=== PATIENT | female | born 1955 ===

== ENCOUNTER 2020-12-25 18:44 | Inpatient (IN) | payer MEDICARE, MEDICAID, SELFPAY ==
[2020-12-25] VITALS (34 sets, daily range): BP systolic 109–171; BP diastolic 60–108; PULSE 82–108; RESP 10–35; TEMP 36.7; O2SAT 82–97
--- NOTE | 2020-12-25 19:15 | DI.RAD_ITS ---
Exam(s) XR PORTABLE CHEST AP EXAM: XR PORTABLE CHEST AP CLINICAL HISTORY: sob, chf, copd. TECHNIQUE: 2D digital imaging was performed. COMPARISON: CT CT CHEST PE CTA from 12/25/[address] CHEST PE CTA from 12/25/2020 FINDINGS: Heart size is upper normal. The mediastinum is not widened. Left lung is clear. Subtle density in the posterior basal segment right lower lobe behind the right heart shadow noted. This possibly nodule. No pleural effusions. No pulmonary edema. No pneumothor ax IMPRESSION: Possible nodular density right lower lobe posterior basal segment. No pleural effusions. DATA REPOSITORY: RADIATION DOSE DELIVERED: All CT scans at this facility use at least one of these dose optimization techniques: automated exposure control; mA and/or kV adjustment per patient size (includes targeted e xams where dose is matched to clinical indication); or iterative reconstruction.
--- NOTE | 2020-12-25 19:15 | RT.EKG_ITS ---
APPROVED REPORT Exam: Resting ECG Reason for Exam: sob Patient Location: E HR:95 bpm ECG Measurements Heart Rate 95 AXIS NE 219 P 63 QRSd 89 QRS 1 QT 347 T 27 QTc 438 Conclusion Sinus rhythm...normal P axis, V-rate 60- 99 Prolonged NE interval...NE >215, V-rate 91-120 Physician: Rate 95, sinus rhythm, NE slightly prolonged. No significant ST elevations or depressions . No evidence of STEMI.
--- NOTE | 2020-12-25 19:34 | W.ED.GENAD ---
Discharge Plan Disposition Patient Disposition: [facility] INPATIENT Condition: Stable Discharge Details Clinical Impression: COPD exacerbation, CHF (congestive heart failure), Acute UTI, Pneumonia, Acute dyspnea, Pulmonary nodule Primary Care Provider: Ekaterina Delong ED Provider: Michele Rizzo Home Meds and New Rx's Prescriptions: No Action cetirizine 10 mg Tablet 10 mg PO DAILY RF: 0 ibuprofen 200 mg Tablet 400 mg PO Q6H PRNRF: 0 Medical Decision Making 65-year-old female with a past medical history of COPD who does not see a primary care provider presents today for evaluation of shortness of breath, leg swelling, and redness on her left leg. Patient states that for the past few weeks she has had swelling in her lower extremities but it is worsened as of late, she has become short of breath with exertion, but has had some difficulty speaking because of her shortness of breath. She admits to also a small lesion on her leg that has been present for years however with the scientology of the swelling in her legs it is constant drainage and now some redness. She denies fever or chills. She does admit to chronic unchanged cough. She denies recent long trips surgeries or procedures. She denies history of blood clots. She denies history of heart attack. She denies any chest pain or exertional chest pain or chest tightness. She does continue to smoke regularly. She does not take any medications at this time. She is not on home oxygen. Physical exam demonstrates crackles in her lung bases, wheezes throughout, lower extremities demonstrate +3 pitting edema, as well as a small circular lesion on her left anterior tucker with a area of redness surrounding it concerning for cellulitis. Differential at this time is highest for COPD exacerbation in conjunction with congestive heart failure. We will diurese, give breathing treatment, get a chest x-ray, get blood cultures, treat with antibiotic for the cellulitis, monitor closely and reassess. Patient has been placed on 2 L of oxygen this is brought her oxygenation up from 88% to 93%. 10 PM Laboratory work-up is returned, patient has no elevation in her white count, oxygenation is improved with supplemental O2. VBG shows a pH of 7.28, PCO2 is elevated at 77 suggesting an acute on chronic component. Lactate normal, initial troponin normal, electrolytes stable. proBNP elevated at 1900, urinalysis is positive for nitrates, leukoesterase, and high WBCs. Covid test is negative. Chest x-ray was read as negative, however CT scan was ordered and shows evidence of pulmonary nodules, multifocal regions and tree but opacities of the lung suggesting infection. Patient I feel at this point has multiple components to her illness. She demonstrates evidence of mild pneumonia, urinary tract infection, congestive heart failure with her notable peripheral edema and elevated proBNP, so has a COPD exacerbation with her wheezes and rhonchi. Patient has been given 3 DuoNeb's, steroids, 2 g of ceftriaxone, and 100 mg of doxycycline for coverage and management of this. She is also been given 20 mg of Lasix and his speed a liter of fluids. We did place her on BiPAP temporarily to help drive down the PCO2, but she remained stable on supplemental nasal cannula. Discussed the case with Dr. Porter, he agrees with the assessment and plan. Patient will be admitted. Of note patient has not yet had the Covid vaccination she is willing to get this now. I have extensively reviewed the treatment plan with the patient. I have addressed all patient concerns at this time. I have also discussed the plan with the admitting physician and they agree with the current assessment and plan and have agreed to assume responsibility for the patient. All parties demonstrate verbal understanding and agreement with our assessment and plan at this time. The documentation in this chart was dictated using [employer] dictation software. Please excuse any dictation errors. EKG 20: 19 Rate 95, sinus rhythm, NE slightly prolonged. No significant ST elevations or depressions. No evidence of STEMI. FINDINGS: Lungs: The lungs are clear. There is no pulmonary vascular congestion. Pleural spaces: There are no pleural effusions present. There is no evidence of pneumothorax. Heart/Mediastinum: There are bilateral pericardial fat pads. Heart size is likely near the upper limits of normal. Bones/joints: Findings suggest mild to moderate lower thoracic levoscoliosis. Other findings: The patient is rotated to the right. IMPRESSION: No active cardiopulmonary disease identified. Thank you for allowing us to participate in the care of your patient. Dictated and Authenticated by: Ed Cash MD 12/25/2020 8:27 PM Eastern Time ([place] & [place]) FINDINGS: Pulmonary arteries: No filling defects within the pulmonary arteries are identified to suggest pulmonary embolism. There is mild dilatation of the central pulmonary arteries suggesting history of pulmonary hypertension. Aorta: Unremarkable. No aortic aneurysm. No aortic dissection. Lungs: There is a 1.0 x 0.9 cm right lower lobe nodule on image 316, series 5. There are smaller subpleural nodules within the lateral aspect of the left lower lobe on image 365 and within the posterior aspect of the right lower lobe on image 401. There are multifocal regions of tree-in-bud opacity, most prominent within the right lower lobe and right middle lobe, suggesting infectious small airways disease. There are regions of atelectasis within the right middle lobe as well. There is mild patchy airspace opacity within the lingula measuring up to 1.7 x 1.2 cm, some of which represents atelectasis but cannot exclude pneumonia in this region. Pleural spaces: There are no pleural effusions present. Heart: There is mild cardiomegaly. There is no pericardial effusion. Lymph nodes: There is no evidence of lymphadenopathy. Gallbladder and bile ducts: There are multiple radiolucent gallstones. Adrenal glands: There is diffuse bilateral nonspecific mild adrenal enlargement, suggesting hyperplasia. Bones/joints: There is multifocal moderate spondylosis throughout the mid and lower thoracic spine. There is a mild anterior wedge compression deformity the T8 vertebra, which appears chronic. Soft tissues: Unremarkable. IMPRESSION: 1. No acute pulmonary embolism identified. 2. Multifocal regions of tree-in-bud opacities within the lungs suggesting infectious small airways disease. 3. A few more isolated pulmonary nodules, as described above, the largest measuring 1.0 x 0.9 cm. Cannot exclude pulmonary neoplasm on this exam. For patients at low risk (minimal or absent history of smoking and of other known risk factors), recommend CT Chest at 3-6 months, then consider CT Chest at 18-24 months. For patients at high risk (history of smoking or of other known risk factors), recommend CT Chest at 3-6 months, then CT Chest at 18-24 months. (Reference: Syed) 4. Mild patchy airspace opacity within the lingular segment of the left upper lobe, some of which represents atelectasis but cannot exclude mild pneumonia in this region. 5. Mild cardiomegaly. 6. Multiple radiolucent gallstones. REFERENCES: Syed Mccurdy, et al. Guidelines for Management of Incidental Pulmonary Nodules Detected on CT Images: From the Fleischner Society 2017. Radiology. 2017;284(1):228-243. Thank you for allowing us to participate in the care of your patient. Dictated and Authenticated by: Ed Cash MD 12/25/2020 9:48 PM Eastern Time ([place] & [place]) HPI General Date/Time Provider Initiated Documentation: 12/25/20 19:00. HPI Narrative: 65-year-old female with a past medical history of COPD who does not see a primary care provider presents today for evaluation of shortness of breath, leg swelling, and redness on her left leg. Patient states that for the past few weeks she has had swelling in her lower extremities but it is worsened as of late, she has become short of breath with exertion, but has had some difficulty speaking because of her shortness of breath. She admits to also a small lesion on her leg that has been present for years however with the scientology of the swelling in her legs it is constant drainage and now some redness. She denies fever or chills. She does admit to chronic unchanged cough. She denies recent long trips surgeries or procedures. She denies history of blood clots. She denies history of heart attack. She denies any chest pain or exertional chest pain or chest tightness. She does continue to smoke regularly. She does not take any medications at this time. She is not on home oxygen. Related Data Home Medications Medication Instructions Recorded Confirmed cetirizine 10 mg PO DAILY 12/25/20 12/25/20 ibuprofen 400 mg PO Q6H PRN 12/25/20 12/25/20 Allergies Allergy/AdvReac Type Severity Reaction Status Date / Time No Known Allergies Allergy Unverified 12/25/20 18:55 General Stated Complaint: Cellulitis SUMAYA: 3 Review of Systems All systems reviewed & are unremarkable except as noted in HPI and below PFSH Social History Smoking/Tobacco Use Status: Current every day Tobacco Type: cigarettes Smoking risk assessment performed?: Yes Alcohol Intake: current Alcohol Intake frequency: holidays/special occasions only Drug use: Never Substance use type: does not use Do you feel safe at home: Yes Do you feel safe in your relationship?: Yes Exam Narrative Exam Narrative: 1.Const: Well-nourished, Well-developed, appearing stated age 2.Eyes: PERRL, no conjunctival injection, and symmetrical lids. 3.ENT: Atraumatic external nose and ears. Moist MM. Neck: Symmetric, trachea midline, No thyromegaly. 4.CVS: +S1/S2, No murmurs or gallops. Peripheral pulses 2+ and equal in all extremities. Brisk capillary refill in all extremities. 5.RESP: Slightly labored respiratory effort, 4-5 word sentences. Wheezes throughout, mild crackles in the bases. No rhonchi. 6.GI: Soft, Nontender/Nondistended, No hepatosplenomegaly. No guarding or rebound. 7.MSK: Normocephalic/Atraumatic, patient demonstrates +3 pitting edema bilaterally, no focal calf tenderness. On her left lower tucker she has a circular lesion appears to be chronic however it is oozing a small amount of serous fluid, no significant purulence though. There is a circular area of redness with an irregular border extending around it, roughly 4 to 5 cm in diameter. 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 Sensation grossly intact, no focal neurologic deficits. 10.Psych: (AAO) x3. Appropriate mood and affect Course Vital Signs Vital signs: Vital Signs Temperature 36.7 C 12/25/20 18:50 Pulse 108 H 12/25/20 18:50 Respiratory Rate 22 12/25/20 18:50 Blood Pressure 171/88 H 12/25/20 18:50 Pulse Oximetry 82 L 12/25/20 18:50 Temperature 36.7 C 12/25/20 18:50 Pulse 108 H 12/25/20 18:50 Respiratory Rate 22 12/25/20 18:50 Respiratory Effort 12/25/20 18:56 Blood Pressure 171/88 H 12/25/20 18:50 Blood Pressure Position Sitting 12/25/20 18:50 Pulse Oximetry 82 L 12/25/20 18:50 Oxygen Delivery Method Room Air 12/25/20 18:50 Oxygen Flow Rate 0 12/25/20 18:50 Lab/Test Results Lab/Test Results: 12/25/20 19:24 Blood Blood Culture - Pending 12/25/20 19:24 Blood Blood Culture - Pending
[2020-12-25 19:40] LABS: Lactate 0.8 mmol/L (0.6-1.4)
[2020-12-25 19:48] LABS: Abs Immature Grans 0.06 10^3/uL (0.0-0.06); Absolute Basophil Count 0.07 10^3/uL (0.0-0.2); Absolute Eosinophil Count 0.06 10^3/uL (0.0-0.7); Absolute Lymphocyte Count 2.23 10^3/uL (1.2-3.4); Absolute Monocyte Count 0.66 10^3/uL (0.1-0.8); Absolute Neutrophil Count 6.09 10^3/uL (1.2-6.7); Basophils % 0.8; Eosinophils % 0.7; HGB 16.9 g/dL (11.2-15.7); Immature Grans % 0.7; Lymphocytes % 24.3; MCH 27.8 pg (27.0-33.0); MCHC 30.8 % (32.0-36.0); Monocytes % 7.2; Neutrophils % 66.3; Nucleated RBC 0 %; Platelet Count 129 10^3/uL (130-400); RBC 6.09 10^6/uL (3.93-5.22); RDW 17.1 % (11.7-14.6); RDW-SD 52.7 fL; WBC 9.17 10^3/uL (4.4-10.8)
[2020-12-25] MEDS: Albuterol/Ipratropium 3 ML UPD VIAL 9 ML UPD (19:50)
[2020-12-25] MEDS: methylPREDNISolone SUCC 125 MG VIAL IVP (19:50)
[2020-12-25] MEDS: Furosemide 20 MG/2 ML VIAL IVP (19:50)
[2020-12-25 19:59] LABS: INR 1.1 (0.9-1.1); PTT Activated 24.7 sec (21.0-27.5); Prothrombin Time 10.7 sec (9.3-11.0)
[2020-12-25 20:01] LABS: HCT 54.8 % (36.0-46.0)
[2020-12-25 20:05] LABS: ALT 23 U/L (14-59); AST 21 U/L (15-37); Albumin 3.6 g/dL (3.4-5.0); Alkaline Phosphatase 110 U/L (46-116); Anion Gap 3.1 mmol/L (3-11); BUN 10 mg/dL (7-18); Bilirubin, Total 0.7 mg/dL (0.2-1.0); CO2 34.9 mmol/L (21.0-32.0); CREATININE 0.9 mg/dL (0.55-1.02); Calcium 8.6 mg/dL (8.5-10.1); Chloride 106 mmol/L (98-107); Glucose 129 mg/dL (74-106); Potassium 4.2 mmol/L (3.5-5.1); Sodium 144 mmol/L (136-145); Total Protein 7.7 g/dL (6.4-8.2)
[2020-12-25 20:14] LABS: NT-proBNP 1981 pg/mL (<300)
[2020-12-25] MEDS: cefTRIAXone 2 GM/50 ML BAG IVPB (20:14)
[2020-12-25 20:17] LABS: Troponin I < 0.05 ng/mL (<0.06)
[2020-12-25 20:24] LABS: D-Dimer 509 ng/mlFEU (<500)
--- NOTE | 2020-12-25 20:28 | DI.VRAD_ITS ---
PROCEDURE INFORMATION: Exam: XR Chest Exam date and time: 12/25/2020 7:26 PM Age: 65 years old Clinical indication: Shortness of breath; Patient HX: SOB, chf, copd TECHNIQUE: Imaging protocol: XR of the chest. Views: 1 view. COMPARISON: No relevant prior studies available. FINDINGS: Lungs: The lungs are clear. There is no pulmonary vascular congestion. Pleural spaces: There are no pleural effusions present. There is no evidence of pneumothorax. Heart/Mediastinum: There are bilateral pericardial fat pads. Heart size is likely near the upper limits of normal. Bones/joints: Findings suggest mild to moderate lower thoracic levoscoliosis. Other findings: The patient is rotated to the right. IMPRESSION: No active cardiopulmonary disease identified. Dictated and Authenticated by: Ed Cash MD. Ordering:ADRIAN Bautista MD
[2020-12-25 20:35] LABS: Procalcitonin < 0.1 ng/mL
[2020-12-25] MEDS: Normal Saline - Diluent 50 ML VIAL IV (20:39)
[2020-12-25] MEDS: Omnipaque 350 MG/ML 100 ML BTL 84 ML IJ (20:40)
[2020-12-25 20:44] LABS: BE (Venous) 10 mmol/L (-2-3); HCO3 (Venous) 36 mmol/L (23-28); O2 Sat (Venous) 94 %; TCO2 (Venous) 32 mmol/L (24-29); pH (Venous) 7.28 (7.31-7.41); pO2 (Venous) 73 mmHg
[2020-12-25 20:46] LABS: pCO2 (Venous) 77 mmHg (41-51)
[2020-12-25 21:09] LABS: Source Nasal/Nares
--- NOTE | 2020-12-25 21:11 | DI.CT_ITS ---
Exam(s) CT CHEST PE CTA EXAM: CT CHEST PE CTA CLINICAL HISTORY: sob, chf, copd, r/o pe. TECHNIQUE: Imaging Protocol: CT angiography of the chest was performed using pulmonary embolus nola col. Multi planar reconstructions were performed. CONTRAST MATERIAL: Intravenous: Omnipaque 350 Contrast volume: 100 cc COMPARISON: No exams were available for comparison FINDINGS: CHEST: PULMONARY ARTERIES: Less than optimal bolus timing. There are no obvious intraluminal filling defect s to suggest acute pulmonary emboli. LUNGS: There is a 10 x 9 millimeter noncalcified nodule the right lower lobe. There is a 6 x 5 shaka meter pleural-based noncalcified nodule in the posterior basal segment of the right lower lobe. Anot her 9 x 6 millimeter nodular infiltrate is seen in the lateral aspect of the posterior basal segment right lower lobe. Also mild infiltrate just above this in the right lower lobe. Mild ground-glass i nfiltrate evident more anteriorly in the right lung. Also patchy infiltrate in the inferior lingular segment of the left lung measuring 1.8 x 0.8 cm. Another 6 millimeters subpleural noncalcified nodu les noted in the anterior basal segment of the left lower lobe. No evidence of pulmonary infarction. No pleural effusions.. No significant focal findings in the trachea and mainstem bronchi. MEDIASTINUM: There is no hilar nor mediastinal adenopathy. Visualized thyroid unremarkable. CARDIAC: Heart size is slightly prominent.. There is no pericardial effusion.Caliber of the thoracic aorta is within normal limits. Coronary artery calcification in the left coronary artery/LAD noted. There is no significant shift of the interventricular septum. PARTIALLY VISUALIZED UPPERMOST ABDOMEN: Cholelithiasis noted. Multiple gallstones filling the gallbl adder lumen. OSSEOUS: No significant osseous lesions.. IMPRESSION: 1. No evidence of acute pulmonary emboli. No evidence of pulmonary infarction.No pleural effusions. 2. However, there is a 10 x 9 millimeter noncalcified nodule in the right lower lobe as well as small er noncalcified subpleural nodules bilaterally. These require close follow-up to rule out neoplasm. 3. Multifocal areas of subtle and patchy infiltrates both lungs, probably infectious. No associated pleural effusions. 4. Mild cardiomegaly. No pulmonary edema. Cholelithiasis evident. RADIATION DOSE DELIVERED: 539.3mGy.cm Total DLP DATA REPOSITORY: All CT scans at this facility are submitted to the National Radiology Data Registry (NRDR) Dose Index Registry (DIR) with the [employer] (ACR). RADIATION OPTIMIZATION: All CT scans at this facility use at least one of these dose optimization te chniques: automated exposure control; mA and/or kV adjustment per patient size (includes targeted exa ms where dose is matched to clinical indication); or iterative reconstruction.
[2020-12-25 21:17] LABS: Bilirubin Negative (Negative); Blood Trace-intact (Negative); Clarity Cloudy (Clear); Glucose Negative (Negative); Ketones Negative (Negative); Leukocyte Esterase Small (Negative); Nitrite Positive (Negative); Specific Gravity 1.015 (1.005-1.025); pH 5.5 (5-8)
[2020-12-25 21:25] LABS: Bacteria Many HPF (Negative); C & S Indicated? Yes; Casts Negative LPF (Negative); Crystals Negative HPF (Negative); Epithelial Cells Few HPF (Negative); Mucus Trace (Negative); RBC 0-2 HPF (0-2)
--- NOTE | 2020-12-25 21:48 | DI.VRAD_ITS ---
PROCEDURE INFORMATION: Exam: CTA Chest With Contrast Exam date and time: 12/25/2020 8:31 PM Age: 65 years old Clinical indication: Shortness of breath; Patient HX: SOB, chf, copd TECHNIQUE: Imaging protocol: Computed tomographic angiography of the chest with contrast. 3D rendering (Not supervised by radiologist): MIP and/or 3D reconstructed images were created by the technologist. Radiation optimization: All CT scans at this facility use at least one of these dose optimization techniques: automated exposure control; mA and/or kV adjustment per patient size (includes targeted exams where dose is matched to clinical indication); or iterative reconstruction. Contrast material: OMNI-PAQUE 350; Contrast volume: 84 ml; Contrast route: INTRAVENOUS (IV); COMPARISON: CR XR PORTABLE CHEST AP 12/25/2020 7:38 PM FINDINGS: Pulmonary arteries: No filling defects within the pulmonary arteries are identified to suggest pulmonary embolism. There is mild dilatation of the central pulmonary arteries suggesting history of pulmonary hypertension. Aorta: Unremarkable. No aortic aneurysm. No aortic dissection. Lungs: There is a 1.0 x 0.9 cm right lower lobe nodule on image 316, series 5. There are smaller subpleural nodules within the lateral aspect of the left lower lobe on image 365 and within the posterior aspect of the right lower lobe on image 401. There are multifocal regions of tree-in-bud opacity, most prominent within the right lower lobe and right middle lobe, suggesting infectious small airways disease. There are regions of atelectasis within the right middle lobe as well. There is mild patchy airspace opacity within the lingula measuring up to 1.7 x 1.2 cm, some of which represents atelectasis but cannot exclude pneumonia in this region. Pleural spaces: There are no pleural effusions present. Heart: There is mild cardiomegaly. There is no pericardial effusion. Lymph nodes: There is no evidence of lymphadenopathy. Gallbladder and bile ducts: There are multiple radiolucent gallstones. Adrenal glands: There is diffuse bilateral nonspecific mild adrenal enlargement, suggesting hyperplasia. Bones/joints: There is multifocal moderate spondylosis throughout the mid and lower thoracic spine. There is a mild anterior wedge compression deformity the T8 vertebra, which appears chronic. Soft tissues: Unremarkable. IMPRESSION: 1. No acute pulmonary embolism identified. 2. Multifocal regions of tree-in-bud opacities within the lungs suggesting infectious small airways disease. 3. A few more isolated pulmonary nodules, as described above, the largest measuring 1.0 x 0.9 cm. Cannot exclude pulmonary neoplasm on this exam. For patients at low risk (minimal or absent history of smoking and of other known risk factors), recommend CT Chest at 3-6 months, then consider CT Chest at 18-24 months. For patients at high risk (history of smoking or of other known risk factors), recommend CT Chest at 3-6 months, then CT Chest at 18-24 months. (Reference: Syed) 4. Mild patchy airspace opacity within the lingular segment of the left upper lobe, some of which represents atelectasis but cannot exclude mild pneumonia in this region. 5. Mild cardiomegaly. 6. Multiple radiolucent gallstones. REFERENCES: Syed Mccurdy, et al. Guidelines for Management of Incidental Pulmonary Nodules Detected on CT Images: From the Fleischner Society 2017. Radiology. 2017;284(1):228-243. Dictated and Authenticated by: Ed Cash MD. Ordering:ADRIAN Bautista MD
[2020-12-25 22:02] LABS: COVID-19 PCR Negative (Negative)
--- NOTE | 2020-12-25 22:27 | W.PM.HP.N ---
Date of service: 12/25/20 Time of Service: 22:27 Assessment and Plan Assessment and plan (1) SOB (shortness of breath): Status: Acute Assessment and plan: COPD plus element CHF, with signs of both right and left sided involvement. Not clear that there is any pulmonary infection what with absence of fever and white count and no change in chronic cough, but there is certainly a cellulitis, and perhaps asymptomatic UTI. Will plan on updrafts, steroids, antibiotics and Lasix. Will check cardiac ECHO and place on Nicotine patch. History of Present Illness History of Present Illness Chief Complaint: SOB, leg swelling Narrative: 65 female smoker, not under medical care, reports years of SOB and LE swelling, but worse over past few weeks, along with orthopnea. No CP. Additionally she has noted a spot on LLE which is usually red but has begun oozing over past day or so. In ER findings of note for absence of fever, rales and wheezing, 3+ pedal edema with oozing punctum left tucker and surrounding erythema (approx 10 cm); labs of note for normal white count, BNP 1900, neg trop, no acute findings on EKG, CXR read as neg (to my read mild CHF) and CT chest showing several nodules, and several areas c/w infectious airspace disease. U/A shows pyuria (10-20 WBC). Patient given O2, duonebs, steroids, Lasix, Rocephin and Doxy and admitted for further management. States she feels significantly better. Review of Systems All systems reviewed & are unremarkable except as noted in HPI and below PFSH Social History Smoking/Tobacco Use Status: Current every day Tobacco Type: cigarettes Smoking risk assessment performed?: Yes Alcohol Intake: current Alcohol Intake frequency: holidays/special occasions only Drug use: Never Substance use type: does not use Do you feel safe at home: Yes Do you feel safe in your relationship?: Yes Meds Allergies and Home Medications Allergies Allergy/AdvReac Type Severity Reaction Status Date / Time No Known Allergies Allergy Unverified 12/25/20 18:55 Exam Narrative Exam Narrative: 109/85, 100, 36.7, 25, 93%/2.5L. HEENT atraumatic; neck supple, unable to read JVP; lungs diminished, obscured by ambient sound; heart distant but RRR; abdomen soft and NT; extremities 3+ pedal edema, primarily lymphedema, some pitting, with approx 5 mm punctum left tucker oozing whitish d/c, with erythema to approx 10 cm; neuro Ox3, moves all 4s Results Labs Result diagrams: 12/25/20 19:34 12/25/20 19:34 Labs: Laboratory Results - last 24 hr 12/25/20 12/25/20 12/25/20 19:34 19:34 19:34 WBC RBC Hgb Hct MCV MCH MCHC RDW Plt Count MPV Immature Gran % Neutrophils % Lymphocytes % Monocytes % Eosinophils % Basophils % Nucleated RBC % Absolute Neutrophils Absolute Lymphocytes Absolute Monocytes Absolute Eosinophils Absolute Basophils PT INR APTT D-Dimer 509 H VBG pH VBG pCO2 VBG pO2 VBG HCO3 VBG Total CO2 VBG O2 Saturation VBG Base Excess VBG Lactate Sodium 144 Potassium 4.2 Chloride 106 Carbon Dioxide 34.9 H Anion Gap 3.1 BUN 10 Creatinine 0.9 Estimated GFR/1.73 m2 >= 60.00 Glucose 129 H Calcium 8.6 Total Bilirubin 0.7 AST 21 ALT 23 Alkaline Phosphatase 110 Troponin I < 0.05 NT-Pro-B Natriuret Pep 1981 H Total Protein 7.7 Albumin 3.6 Procalcitonin Urine Color Urine Clarity Urine pH Ur Specific Saline Urine Protein Urine Ketones Urine Blood Urine Nitrite Urine Bilirubin Urine Urobilinogen Ur Leukocyte Esterase Urine RBC Urine WBC Ur Epithelial Cells Urine Crystals Urine Bacteria Urine Casts Urine Mucus Ur Culture Indicated? Urine Glucose COVID-19 Source SARS-CoV-2 (PCR) 12/25/20 12/25/20 12/25/20 19:34 19:34 19:34 WBC 9.17 RBC 6.09 H Hgb 16.9 H Hct 54.8 H MCV 90.0 MCH 27.8 MCHC 30.8 L RDW 17.1 H Plt Count 129 L MPV 10.0 Immature Gran % 0.7 Neutrophils % 66.3 Lymphocytes % 24.3 Monocytes % 7.2 Eosinophils % 0.7 Basophils % 0.8 Nucleated RBC % 0 Absolute Neutrophils 6.09 Absolute Lymphocytes 2.23 Absolute Monocytes 0.66 Absolute Eosinophils 0.06 Absolute Basophils 0.07 PT 10.7 INR 1.1 APTT 24.7 D-Dimer VBG pH VBG pCO2 VBG pO2 VBG HCO3 VBG Total CO2 VBG O2 Saturation VBG Base Excess VBG Lactate 0.8 Sodium Potassium Chloride Carbon Dioxide Anion Gap BUN Creatinine Estimated GFR/1.73 m2 Glucose Calcium Total Bilirubin AST ALT Alkaline Phosphatase Troponin I NT-Pro-B Natriuret Pep Total Protein Albumin Procalcitonin Urine Color Urine Clarity Urine pH Ur Specific Saline Urine Protein Urine Ketones Urine Blood Urine Nitrite Urine Bilirubin Urine Urobilinogen Ur Leukocyte Esterase Urine RBC Urine WBC Ur Epithelial Cells Urine Crystals Urine Bacteria Urine Casts Urine Mucus Ur Culture Indicated? Urine Glucose COVID-19 Source SARS-CoV-2 (PCR) 12/25/20 12/25/20 12/25/20 19:34 20:15 20:32 WBC RBC Hgb Hct MCV MCH MCHC RDW Plt Count MPV Immature Gran % Neutrophils % Lymphocytes % Monocytes % Eosinophils % Basophils % Nucleated RBC % Absolute Neutrophils Absolute Lymphocytes Absolute Monocytes Absolute Eosinophils Absolute Basophils PT INR APTT D-Dimer VBG pH 7.28 L VBG pCO2 77 H* VBG pO2 73 VBG HCO3 36 H VBG Total CO2 32 H VBG O2 Saturation 94 VBG Base Excess 10 H VBG Lactate Sodium Potassium Chloride Carbon Dioxide Anion Gap BUN Creatinine Estimated GFR/1.73 m2 Glucose Calcium Total Bilirubin AST ALT Alkaline Phosphatase Troponin I NT-Pro-B Natriuret Pep Total Protein Albumin Procalcitonin < 0.1 Urine Color Yellow Urine Clarity Cloudy Urine pH 5.5 Ur Specific Saline 1.015 Urine Protein 30 H Urine Ketones Negative Urine Blood Trace-intact H Urine Nitrite Positive H Urine Bilirubin Negative Urine Urobilinogen 1.0 H Ur Leukocyte Esterase Small H Urine RBC 0-2 Urine WBC 10-20 H Ur Epithelial Cells Few Urine Crystals Negative Urine Bacteria Many Urine Casts Negative Urine Mucus Trace Ur Culture Indicated? Yes Urine Glucose Negative COVID-19 Source SARS-CoV-2 (PCR) 12/25/20 20:36 WBC RBC Hgb Hct MCV MCH MCHC RDW Plt Count MPV Immature Gran % Neutrophils % Lymphocytes % Monocytes % Eosinophils % Basophils % Nucleated RBC % Absolute Neutrophils Absolute Lymphocytes Absolute Monocytes Absolute Eosinophils Absolute Basophils PT INR APTT D-Dimer VBG pH VBG pCO2 VBG pO2 VBG HCO3 VBG Total CO2 VBG O2 Saturation VBG Base Excess VBG Lactate Sodium Potassium Chloride Carbon Dioxide Anion Gap BUN Creatinine Estimated GFR/1.73 m2 Glucose Calcium Total Bilirubin AST ALT Alkaline Phosphatase Troponin I NT-Pro-B Natriuret Pep Total Protein Albumin Procalcitonin Urine Color Urine Clarity Urine pH Ur Specific Saline Urine Protein Urine Ketones Urine Blood Urine Nitrite Urine Bilirubin Urine Urobilinogen Ur Leukocyte Esterase Urine RBC Urine WBC Ur Epithelial Cells Urine Crystals Urine Bacteria Urine Casts Urine Mucus Ur Culture Indicated? Urine Glucose COVID-19 Source Nasal/Nares SARS-CoV-2 (PCR) Negative Last Vital Signs Temp 36.7 C 12/25/20 18:50 Pulse 100 H 12/25/20 21:46 Resp 25 H 12/25/20 21:50 BP 109/85 12/25/20 21:46 Pulse Ox 93 12/25/20 21:46
[2020-12-25] MEDS: DOXYCYCLINE 100 MG in Normal Saline 100 ML IVPB (22:30)
[2020-12-25 23:32] LABS: Troponin I < 0.05 ng/mL (<0.06)
[2020-12-26] VITALS (16 sets, daily range): BP systolic 114–145; BP diastolic 62–76; PULSE 75–103; RESP 1–19; TEMP 36.2–36.7; O2SAT 90–96
--- NOTE | 2020-12-26 | DI.US_ITS ---
Exam(s) US EXTREMITY VENOUS BI EXAM: US EXTREMITY VENOUS BI CLINICAL HISTORY: bilateral leg edema; r/o dvt TECHNIQUE: Grayscale, color, and doppler imaging of the deep venous system of both lower extremities was performed. COMPARISON: US US ECHOCARDIOGRAM from 12/26/2020 FINDINGS: There is no evidence of intraluminal thrombus and there is normal compression and augmentation demons trated within the common femoral veins, femoral veins, and popliteal veins of both lower extremities. In the calves the interrogated veins also exhibit normal compression/ augmentation properties. The greater saphenous veins also appear patent as do the saphenofemoral junctions bilaterally.. IMPRESSION: 1. No ultrasound evidence of DVT in either lower extremity. DATA REPOSITORY:
[2020-12-26] MEDS: Albuterol/Ipratropium 3 ML UPD VIAL UPD ×5 (00:35→23:55)
[2020-12-26] MEDS: methylPREDNISolone SUCC 40 MG VIAL IVP ×2 (03:54→12:10)
[2020-12-26] MEDS: Furosemide 20 MG/2 ML VIAL IVP ×2 (07:41→15:55)
--- NOTE | 2020-12-26 08:58 | PDOC.CMIN ---
- If Service Date Differs Date of service: 12/26/20 Time of Service: 08:58 Care Management Initial Assess REASON FOR HOSPITALIZATION:: COPD, CHF, Cellulites PAST MEDICAL HISTORY/PAST SURGICAL HISTORY:: COPD. Chronic Cough. Nicotine Dependence. PREVIOUS FUNCTIONAL STATUS/SOCIAL/FAMILY SUPPORTS:: Mariam lives alone in [facility]. She is independent with her ADL. She does not drive but has the support of her friends to help her with transportation, banking and groceries. She does not have any children. She mentions that she has a brother Bradley lives in [place], [place], a brother in [place], [place], and 2 brothers in [place], [place]. CURRENT FUNCTIONAL STATUS:: Mariam was sitting up in her chair when CM met with her. She was pleasant and easily engaged in conversation. She shares that her symptoms are all new to her and shes never really needed to see a doctor. Mariam's friend Keerthi (who lives above her) who helps her with transportation. She also has a friend Mary who lives in [facility] who helps her with banking and groceries. ADVANCE DIRECTIVES:: Not on file, CM gave copy to patient. Has patient been provided with info about the portal/API?: Yes Did the patient sign up for the portal?: No CODE STATUS:: DNR/DNI INSURANCE COVERAGE / FINANCIAL ISSUES:: Medicare/C&S Admin SER C CURRENT HOME/COMMUNITY SERVICES/EQUIPMENT:: Mariam does not have any current services, she is independent at baseline. PRIMARY CARE PHYSICIAN:: Per Mariam she does not have a PCP, CM continues to support POTENTIAL DISCHARGE NEEDS:: Mariam reports that she does not have a PCP, CM gave pt a list of providers. PATIENT/FAMILY EDUCATION NEEDS:: Review discharge instructions and plan to follow up with outpatient providers, ask me three. TRANSPORTATION:: Mariam reports that her friend Keerthi Good will arrange transportation via private vehicle or RCT. CM will continue to support. PLAN:: Mariam will return home when medically cleared. CM will continue to support.
--- NOTE | 2020-12-26 12:07 | PHA.REVIEW ---
Pharmacy Admission Review - Admission Clinical Review (Last Reviewed 12/25/20 @ 22:34 by Broderick Porter MD) SOB (shortness of breath) (Acute) COPD exacerbation (Acute) Acute UTI (Acute) Pneumonia (Acute) Acute dyspnea (Acute) Pulmonary nodule (Acute) No Known Allergies Allergy (Unverified 12/25/20 18:55) Resuscitation Status DNR/DNI Height 5 ft 3 in Weight 115.1 kg - Renal Dosing Renal Dosing: BUN 10 mg/dL (7-18) 12/25/20 19:34 Creatinine 0.9 mg/dL (0.55-1.02) 12/25/20 19:34 Medications needing adjustments: Reviewed (CrCl~75.2 mL/min (adjusted BW) current meds okay.) - Anticoagulation Anticoagulation: Hgb 16.9 g/dL (11.2-15.7) H 12/25/20 19:34 Hct 54.8 % (36.0-46.0) H 12/25/20 19:34 Plt Count 129 10^3/uL (130-400) L 12/25/20 19:34 INR 1.1 (0.9-1.1) 12/25/20 19:34 Creatinine 0.9 mg/dL (0.55-1.02) 12/25/20 19:34 DVT Prophylaxis: Intervened (Will ask provider about need.) Therapeutic Anticoagulation: N/A - Opiate Usage Evaluate Pain Scale/Pains Meds: N/A - Relevant Labs Sodium 144 mmol/L (136-145) 12/25/20 19:34 Potassium 4.2 mmol/L (3.5-5.1) 12/25/20 19:34 Chloride 106 mmol/L (98-107) 12/25/20 19:34 Electrolytes, C-Reactive P, ESR: Reviewed (No labs for today, labs from yesterday within normal ranges) - DM Control DM Control: Glucose 129 mg/dL (74-106) H 12/25/20 19:34 Insulin Dosing: N/A - Heart Failure/NJ Heart Failure/NJ: Troponin I < 0.05 ng/mL (<0.06) 12/25/20 23:05 NT-Pro-B Natriuret Pep 1981 pg/mL (<300) H 12/25/20 19:34 EF%, SRINI's, B-Blockers, Diuretics: Reviewed (Currently has IVP furosemide ordered BID) - BP Control BP Control: Blood Pressure 145/75 Blood Pressure 137/62 If elevated: Reviewed (BP has been elelavted most of admission, currently only has furosemide ordered. No BP meds listed on home med list) - Qtc Review If Elevated: N/A (QTc 438 upon admission.) - IV to PO Switch IV Medications: Reviewed - Home Meds Home Med List reviewed: Reviewed (Only two meds listed on home med list, nothing in the external med history. H&P mentions pt not under medical care.) - Current meds Current Medication Order Review: Reviewed - Comments Comments/Follow Ups: Monitor BP and pending cultures. Monitor for changes in current medications and any changes from IV to PO. Antibiotic Activity - Pharmacy Antibiotic Review Pharmacy Antibiotic Activity: Reviewed, no change (Ceftriaxone ordered (day 2 starts tonight), culture results pending)
[2020-12-26] MEDS: Normal Saline Flush 10 ML SYR IVP ×3 (12:12→23:55)
--- NOTE | 2020-12-26 14:20 | CHAPLAIN ---
Mariam was sitting up in her chair watching tv when I visited. She easily engaged in a conversation. She told me about her siblings who live in [place] and [place]. He attended [employer] at one time, but believes that she doesn't need to be inside a building to be in touch with a higher power. I told I agree. She mostly talked about her smoking, usually a pack a day. She said she spends about $200 a month on cigarettes. She hasn't smoked since she was admitted, and said she is holding off on the patch to see if she needs it. But she admitted that she will likely go back to smoking, although she talked about what else she could do with the $200 a month. Mariam asked me for some potato chips, but when I checked with her nurse, Roxy SANCHEZ, I found out that Mariam is on a low-salt diet. Roxy said that Mariam had already asked her for chips too and she would remind Mariam that she can't have them.
--- NOTE | 2020-12-26 14:25 | PGE_ITS ---
Date of Service Date of service: 12/26/20 Time of Service: 14:25 Assessment and Plan Assessment and plan (1) CHF (congestive heart failure): Status: Suspected Assessment and plan: Patient has chronic bilateral leg edema and evidence of pulmonary hypertension with RVSP of 45 mm however she has normal right ventricular size and function which goes against longstanding heart failure. Her LV E:e prime ratio, and her septal and lateral e prime velocities and her TR velocities do not fit picture to call for diastolic heart failure. Nevertheless her PHTN probably is contributing to her right sided edema. She has an elevated BNP along w/ evidence for congestive edema. Will continue w/ iv lasix and diurese her to reduce her leg edema. She need to quit smoking and she needs evaluation for YANIRA given her body habitus. Qualifiers: Heart failure type: right-sided Heart failure chronicity: chronic Qualified Code(s): I50.812 - Chronic right heart failure (2) COPD exacerbation: Status: Acute Assessment and plan: dc iv corticosteroids and put her on prednisone and continue w/ aerosolized bronchodilators along w/ antibiotics and respiratory toiletry (acapella and IS) (3) Acute UTI: Status: Acute Assessment and plan: cont. Rocephin for now, modify antibiotic coverage based on culture results (4) Pneumonia: Status: Acute Assessment and plan: cont. Rocephin, pulm toiletry, nebulizers and oxygen Qualifiers: Pneumonia type: due to unspecified organism Laterality: bilateral (5) Pulmonary nodule: Status: Acute Assessment and plan: will consult pulmonary service to follow her upon discharge. (6) Cellulitis of left leg: Status: Acute Assessment and plan: continue rocephin for UTI as well as pneumonia and cellulitis. Subjective Subjective Interval history since last seen: 65-year-old female female with COPD who still smokes a pack per day presented with increasing exertional dyspnea along with increasing bilateral leg edema and orthopnea and was found to have erythema of her distal left leg. She states that she has nicked the skin over her lower tucker and shaving over the last couple days developed an area of redness. She was visiting with a neighbor friend who told her she needs go to the hospital immediately. Patient denies any chest tightness or pain or pressure nausea or vomiting or dysuria or fever or rigors. Evaluation in the ER included routine labs, EKG, CBC demonstrated normal white count of 9100 she is polycythemic hemoglobin 16.9 g hematocrit 54% and mildly thrombocytopenia with platelet count 129,000. proBNP is elevated at 1981 and troponin I was negative at less than 0.05x2 sets. Procalcitonin was less than 0.1. LFTs were normal. Carbon dioxide level on her CMP was elevated 34.9 consistent with chronic hypercarbia. BUN and creatinine were normal at 10 and 0.9 electrolytes were normal. D-dimer was mildly elevated at 509 but within the age appropriate limits. Chest 2 Views showed the heart to be upper limits of normal. Mediastinum is not widened. Left lung was clear but there is a subtle density in the posterior basal segment of the right lower lobe behind the right heart shadow possible nodule. No pleural effusion and no pulmonary edema. This prompted a CT scan of her chest which was read by Narinder perez showing no acute pulmo nary embolism but multifocal regions of tree-in-bud opacities within the lungs suggestive of infectious small airway disease. Few isolated pulmonary nodules with the largest measuring 1 x 0.9 cm. Pulmonary neoplasm cannot be excluded on this exam. There is mild patchy airspace opacity in the lingular segment left upper lobe and mild cardiomegaly she also has multiple radiolucent gallstones. CT scan was an over read by our in-house radiologist who also confirmed no evidence of pulmonary emboli or pulmonary infarction with small effusions but noncalcified nodule measuring 10 x 9 mm in the right lower lobe as well as a smaller noncalcified subpleural nodules bilaterally. These require close follow-up to rule out neoplasm. She also has multifocal areas of subtle patchy infiltrates in both lungs probably infectious in etiology. She has mild cardiomegaly no pulmonary edema. Patient was treated for what was felt to be congestive heart failure along with COPD exacerbation and pneumonia as well as cellulitis of her left leg. Cultures and urine cultures were obtained. Urine culture was obtained because of abnormal UA that showed positive nitrites small amount leukocyte esterase with 10-20 white cells many bacteria with only a few epithelial cells. Patient was begun on doxycycline and Rocephin. The installation coordinator kept her on the Rocephin but did not review this doxycycline. Patient was given IV corticosteroids and aerosolized bronchodilators. This afternoon patient is feeling better. She denies any fever chills says her cough is minimally productive of clear mucus. Exam Narrative Exam Narrative: Pleasant obese female sitting up in her chair with her legs elevated. She has a well demarcated area of erythema along with some central skin abrasion/ulceration over the distal tibia. She has 2+ pitting edema of her feet ankles and calves up to her knees bilaterally. Lungs reveal bibasilar rales but no rhonchi. She has a few end expiratory wheezes. Heart is regular rate and rhythm no appreciable murmur rub Abdomen is obese soft nontender. Because of her obesity I cannot discern whether or not she has organomegaly. I do not hear any bruits. Neuro/psychiatric: She is alert and oriented person place time circumstance answers questions appropriately she has good insight good judgment. She has no focal motor deficits no focal sensory deficits to light touch. I did not perform DTRs. No gross cranial nerve abnormalities. Objective Last Vital Signs Temp 36.2 C L 12/26/20 08:19 Pulse 88 12/26/20 11:52 Resp 16 12/26/20 11:52 BP 145/75 H 12/26/20 08:19 Pulse Ox 90 L 12/26/20 11:52 Laboratory Results - last 24 hr 12/25/20 12/25/20 12/25/20 19:34 19:34 19:34 WBC RBC Hgb Hct MCV MCH MCHC RDW Plt Count MPV Immature Gran % Neutrophils % Lymphocytes % Monocytes % Eosinophils % Basophils % Nucleated RBC % Absolute Neutrophils Absolute Lymphocytes Absolute Monocytes Absolute Eosinophils Absolute Basophils PT INR APTT D-Dimer 509 H VBG pH VBG pCO2 VBG pO2 VBG HCO3 VBG Total CO2 VBG O2 Saturation VBG Base Excess VBG Lactate Sodium 144 Potassium 4.2 Chloride 106 Carbon Dioxide 34.9 H Anion Gap 3.1 BUN 10 Creatinine 0.9 Estimated GFR/1.73 m2 >= 60.00 Glucose 129 H Calcium 8.6 Total Bilirubin 0.7 AST 21 ALT 23 Alkaline Phosphatase 110 Troponin I < 0.05 NT-Pro-B Natriuret Pep 1981 H Total Protein 7.7 Albumin 3.6 Procalcitonin Urine Color Urine Clarity Urine pH Ur Specific [place] Urine Protein Urine Ketones Urine Blood Urine Nitrite Urine Bilirubin Urine Urobilinogen Ur Leukocyte Esterase Urine RBC Urine WBC Ur Epithelial Cells Urine Crystals Urine Bacteria Urine Casts Urine Mucus Ur Culture Indicated? Urine Glucose COVID-19 Source SARS-CoV-2 (PCR) 12/25/20 12/25/20 12/25/20 19:34 19:34 19:34 WBC 9.17 RBC 6.09 H Hgb 16.9 H Hct 54.8 H MCV 90.0 MCH 27.8 MCHC 30.8 L RDW 17.1 H Plt Count 129 L MPV 10.0 Immature Gran % 0.7 Neutrophils % 66.3 Lymphocytes % 24.3 Monocytes % 7.2 Eosinophils % 0.7 Basophils % 0.8 Nucleated RBC % 0 Absolute Neutrophils 6.09 Absolute Lymphocytes 2.23 Absolute Monocytes 0.66 Absolute Eosinophils 0.06 Absolute Basophils 0.07 PT 10.7 INR 1.1 APTT 24.7 D-Dimer VBG pH VBG pCO2 VBG pO2 VBG HCO3 VBG Total CO2 VBG O2 Saturation VBG Base Excess VBG Lactate 0.8 Sodium Potassium Chloride Carbon Dioxide Anion Gap BUN Creatinine Estimated GFR/1.73 m2 Glucose Calcium Total Bilirubin AST ALT Alkaline Phosphatase Troponin I NT-Pro-B Natriuret Pep Total Protein Albumin Procalcitonin Urine Color Urine Clarity Urine pH Ur Specific [place] Urine Protein Urine Ketones Urine Blood Urine Nitrite Urine Bilirubin Urine Urobilinogen Ur Leukocyte Esterase Urine RBC Urine WBC Ur Epithelial Cells Urine Crystals Urine Bacteria Urine Casts Urine Mucus Ur Culture Indicated? Urine Glucose COVID-19 Source SARS-CoV-2 (PCR) 12/25/20 12/25/20 12/25/20 19:34 20:15 20:32 WBC RBC Hgb Hct MCV MCH MCHC RDW Plt Count MPV Immature Gran % Neutrophils % Lymphocytes % Monocytes % Eosinophils % Basophils % Nucleated RBC % Absolute Neutrophils Absolute Lymphocytes Absolute Monocytes Absolute Eosinophils Absolute Basophils PT INR APTT D-Dimer VBG pH 7.28 L VBG pCO2 77 H* VBG pO2 73 VBG HCO3 36 H VBG Total CO2 32 H VBG O2 Saturation 94 VBG Base Excess 10 H VBG Lactate Sodium Potassium Chloride Carbon Dioxide Anion Gap BUN Creatinine Estimated GFR/1.73 m2 Glucose Calcium Total Bilirubin AST ALT Alkaline Phosphatase Troponin I NT-Pro-B Natriuret Pep Total Protein Albumin Procalcitonin < 0.1 Urine Color Yellow Urine Clarity Cloudy Urine pH 5.5 Ur Specific [place] 1.015 Urine Protein 30 H Urine Ketones Negative Urine Blood Trace-intact H Urine Nitrite Positive H Urine Bilirubin Negative Urine Urobilinogen 1.0 H Ur Leukocyte Esterase Small H Urine RBC 0-2 Urine WBC 10-20 H Ur Epithelial Cells Few Urine Crystals Negative Urine Bacteria Many Urine Casts Negative Urine Mucus Trace Ur Culture Indicated? Yes Urine Glucose Negative COVID-19 Source SARS-CoV-2 (PCR) 12/25/20 12/25/20 20:36 23:05 WBC RBC Hgb Hct MCV MCH MCHC RDW Plt Count MPV Immature Gran % Neutrophils % Lymphocytes % Monocytes % Eosinophils % Basophils % Nucleated RBC % Absolute Neutrophils Absolute Lymphocytes Absolute Monocytes Absolute Eosinophils Absolute Basophils PT INR APTT D-Dimer VBG pH VBG pCO2 VBG pO2 VBG HCO3 VBG Total CO2 VBG O2 Saturation VBG Base Excess VBG Lactate Sodium Potassium Chloride Carbon Dioxide Anion Gap BUN Creatinine Estimated GFR/1.73 m2 Glucose Calcium Total Bilirubin AST ALT Alkaline Phosphatase Troponin I < 0.05 NT-Pro-B Natriuret Pep Total Protein Albumin Procalcitonin Urine Color Urine Clarity Urine pH Ur Specific [place] Urine Protein Urine Ketones Urine Blood Urine Nitrite Urine Bilirubin Urine Urobilinogen Ur Leukocyte Esterase Urine RBC Urine WBC Ur Epithelial Cells Urine Crystals Urine Bacteria Urine Casts Urine Mucus Ur Culture Indicated? Urine Glucose COVID-19 Source Nasal/Nares SARS-CoV-2 (PCR) Negative Reviewed Pertinent PMH: No Objective Narrative Objective Narrative: Medicare ultrasound of her lungs was performed patient has bilateral basilar B-lines no effusion. Cardiac exam was performed and was technically difficult due to her obesity and the fact that I think this while she was sitting up in the chair. I cannot get an adequate parasternal images. Apical four-chamber view and subcostal four- chamber view was performed. RV appears to be borderline enlarged. Nearly equal size to the LV. Grossly it appeared to be good excursion of the tricuspid annular plane as I did not get formal measurements. Her IVC appears to be within normal limits but there is less than 50% respiratory variation. Formal echocardiogram was done by the echo four slide machine setter. And reviewed.Echocardiogram showed normal left ventricular chamber size and function thickness. No evidence of LVOT obstruction. LVEF 59%. Normal left atrial size. Right ventricular chamber size wall thickness and systolic function were within normal limits. Right atrium appeared to be normal. Aortic valve is tricuspid with no evidence of aortic stenosis or aortic regurgitation. Mitral valve leaflets were normal with trace mitral gravitation. Tricuspid leaflets are normal with trace of tricuspid regurgitation. There is no pericardial effusion. Aortic root is normal size with mild dilatation ascending aorta at 3.5 cm. Inferior vena cava size was normal but less than 50% respiratory change in the inferior vena cava dimensions consistent with elevated right atrial pressures.
[2020-12-26] MEDS: Pantoprazole 40 MG TABCR PO (15:54)
[2020-12-26] MEDS: predniSONE 20 MG TAB 40 MG PO (15:55)
[2020-12-26] MEDS: Enoxaparin 40 MG/0.4 ML SYR SC (17:15)
[2020-12-26] MEDS: Doxycycline Hyclate 100 MG CAP PO (20:23)
[2020-12-26] MEDS: cefTRIAXone 1 GM/50 ML BAG IVPB (20:23)
[2020-12-27] VITALS (8 sets, daily range): BP systolic 130–135; BP diastolic 67–78; PULSE 73–90; RESP 2–24; TEMP 36.6–36.9; O2SAT 91–95
[2020-12-27] MEDS: Albuterol/Ipratropium 3 ML UPD VIAL UPD ×3 (06:27→18:58)
[2020-12-27 06:46] LABS: HCT 50.8 % (36.0-46.0); HGB 14.9 g/dL (11.2-15.7); MCH 27.7 pg (27.0-33.0); MCHC 29.3 % (32.0-36.0); MCV 94.6 fL (80-95); MPV 11.2 fL (8.0-11.0); RBC 5.37 10^6/uL (3.93-5.22); RDW 16.6 % (11.7-14.6); RDW-SD 57.2 fL; WBC 9.66 10^3/uL (4.4-10.8)
[2020-12-27 07:05] LABS: Anion Gap -0.9 mmol/L (3-11); BUN 19 mg/dL (7-18); CO2 41.9 mmol/L (21.0-32.0); Calcium 8.9 mg/dL (8.5-10.1); Chloride 102 mmol/L (98-107); Estimated GFR 55.47 (mL/min/1.73m2); Glucose 122 mg/dL (74-106); NT-proBNP 1163 pg/mL (<300); Potassium 4.9 mmol/L (3.5-5.1); Sodium 143 mmol/L (136-145)
--- NOTE | 2020-12-27 07:23 | PUCON_ITS ---
General Date Of Service Date of service: 12/27/20 Time of Service: 12:00 Reason for Consult: Pulmonary Nodules Assessment and Plan Assessment and plan (1) Respiratory failure with hypoxia and hypercapnia: Status: Acute Qualifiers: Chronicity: acute on chronic Qualified Code(s): J96.21 - Acute and chronic respiratory failure with hypoxia; J96.22 - Acute and chronic respiratory failure with hypercapnia (2) COPD exacerbation: Status: Acute (3) CHF (congestive heart failure): Status: Suspected Qualifiers: Heart failure chronicity: chronic Heart failure type: right-sided Qualified Code(s): I50.812 - Chronic right heart failure (4) Pneumonia: Status: Acute Qualifiers: Pneumonia type: due to unspecified organism Laterality: right Lung location: middle lobe of lung Qualified Code(s): J18.9 - Pneumonia, unspecified organism (5) Pulmonary nodule: Status: Acute (6) Pulmonary hypertension: Status: Acute Assessment and plan: This is a 65-year-old female with a documented history of COPD and current smoking who presented to the emergency department for shortness of breath and was subsequently admitted to the medicine service for CHF and COPD exacerbation. She was found to have right middle lobe infiltrate as well as a right lower lobe nodule that requires outpatient follow- up. She has acute on chronic hypoxic and hypercapnic respiratory failure that will warrant outpatient work-up for the need of BiPAP. The right middle lobe abnormalities may reflect an infectious etiology so agree with antibiotic treatment for community-acquired pneumonia. She does have a mixed picture of COPD and CHF exacerbation. Acute on chronic hypercapnic and hypoxic respiratory failure - supplemental O2 for sats between 88-92% - will need ambulatory pulse ox prior to discharge - recommend VibraPEP and ambulation as tolerated - agree with diuresis for CHF - defer to medicine team COPD Exacerbation - Would scheduled her Duonebs for QID to facilitate restful sleep - agree with prn albuterol neb q4h - agree with antibiotics - agree with prednisone 40mg daily. Would recommend the following taper on discharge: Community Acquired Pneumonia - agree with doxy and ceftriaxone - I will repeat chest imaging as an outpatient - VibraPEP as above - recommend urine strep pneumo and legionella antigens\ - recommend sputum culture if able Pulmonary Nodule - will reimage as an outpatient. Pulmonary Hypertension, likely group 2 and 3 - optimization of pulmonary and cardiac disease History of Present Illness History of Present Illness Chief Complaint: SOB Narrative: This is a 65-year-old female who has a history of smoking and presented to the emergency department with shortness of breath and leg swelling. She was found to be in CHF exacerbation and was admitted for this reason. She also has a documented stated history of COPD and is being treated for COPD exacerbation as well as a pneumonia. She had a VBG deformed that showed a pH of 7.28 with a CO2 of 77. Her serum bicarb was also found to be extremely elevated at 42, in addition to having an elevated BNP. Her pro calcitonin was negative. A chest CT found no PE however did fine a noncalcified 1 cm nodule in the right lower lobe as well as small non-calcified subpleural nodules bilaterally. My evaluation of the CAT scan there are right middle lobe infiltrates that are both nodular and groundglass as well as a more dense right lower lobe nodule in addition to right lower lobe groundglass that could reflect atelectasis. There is evidence of pulmonary hypertension on the CAT scan, however there is no hepatic reflux of contrast. He also had a recent echocardiogram at [facility] on 12/26/2020. This was a technically difficult study however there was normal left ventricular function with an EF of 60% with no wall motion abnormalities. The RV appeared to be in normal size and function with an estimated PAP of 45. She did not have any pulmonary function tests in our system. She states she does not have a primary care physician and does not go to the doctor but was told she probably has COPD when she was admitted to [facility]. She has never had breathing test done before however states she has used an albuterol inhaler in the past but it made her cough so she stopped using it. She has never tried any other inhalers at all. Consults Consult date: 12/27/20 Review of Systems All systems reviewed & are unremarkable except as noted in HPI and below Constitutional Constitutional: Reports difficulty sleeping, Reports fatigue, Denies headache(s) and Reports lethargy ENT Ears, Nose, Mouth, and Throat: Denies headache(s) Cardiovascular Cardiovascular: Reports pedal edema, Reports leg edema, Reports dyspnea, Reports dyspnea on exertion and Reports orthopnea Respiratory Respiratory: Reports chest congestion, Reports cough, Reports dyspnea, Reports dyspnea on exertion and Reports wheezing Musculoskeletal Musculoskeletal: Reports muscle weakness Neurologic Neurologic: Denies headache(s) Endocrine Endocrine: Reports fatigue Allergic/Immunologic Allergic/Immunologic: Reports wheezing PFSH Social History Smoking/Tobacco Use Status: Current every day Tobacco Type: cigarettes Smoking risk assessment performed?: Yes Alcohol Intake: current Alcohol Intake frequency: holidays/special occasions only Drug use: Never Substance use type: does not use Do you feel safe at home: Yes Do you feel safe in your relationship?: Yes Visit Medication and Allergies Active Medications Generic Name Dose Route Start Last Admin Trade Name Freq PRN Reason Stop Dose Admin Acetaminophen 650 mg 12/25/20 22:45 Acetaminophen 325 Mg Tab PO Q4H PRN PRN Albuterol Sulfate 2.5 mg 12/25/20 22:42 Albuterol 2.5 Mg/3 Ml Inh Soln Vial UPD Q4H PRN PRN Albuterol/Ipratropium 3 ml 12/26/20 12:00 12/27/20 06:27 Albuterol/Ipratropium 3 Ml Upd Vial UPD 3 ml Q6H ELE Administration Dimethicone/Zinc Oxide 0 gm 12/25/20 22:42 Minesh Protect Cream 142 Gm Tube TP PRN PRN Doxycycline Hyclate 100 mg 12/26/20 20:00 12/26/20 20:23 Doxycycline Hyclate 100 Mg Cap PO 100 mg BID ELE Administration Enoxaparin Sodium 40 mg 12/27/20 08:30 Enoxaparin 40 Mg/0.4 Ml Syr SC DAILY ELE Furosemide 20 mg 12/26/20 08:00 12/26/20 15:55 Furosemide 20 Mg/2 Ml Vial IVP 20 mg BID@0800,1600 ELE Administration Ceftriaxone Sodium/Dextrose 1 gm in 50 mls @ 100 mls/hr 12/26/20 20:00 12/26/20 20:23 Rocephin IVPB 100 mls/hr Q24H ELE Administration Melatonin 3 - 6 mg 12/26/20 13:45 Melatonin 3 Mg Tab PO HS PRN PRN Pantoprazole Sodium 40 mg 12/27/20 07:30 Pantoprazole 40 Mg Tabcr PO DAILY@0730 ELE Prednisone 40 mg 12/27/20 08:30 Prednisone 20 Mg Tab PO DAILY ELE Sodium Chloride 0 ml 12/26/20 07:34 12/26/20 23:55 Normal Saline Flush 10 Ml Syr IVP 10 ml PRN PRN Administration Allergies No Known Allergies Allergy (Unverified 12/25/20 18:55) Exam Const General: no acute distress Nutritional Appearance: obese HENMT Head: normocephalic Ears: external ears normal General nose exam: nasal mucous membranes and turbinates normal Face and sinus: normal facial exam Mouth: oropharynx normal and moist mucous membranes Teeth and gingiva: dentition normal Eyes General: appearance normal, both eyes and all related structures Pupils: PERRL Neck Neck: normal visual inspection and no lymphadenopathy Chest Chest: normal inspection of the chest Resp Effort & Inspection: normal respiratory effort Auscultation: clear to auscultation bilaterally, rales (at bases) bilaterally, no rhonchi and wheezes expiratory wheezes, lower bilaterally and upper bilaterally Cardio Rate: regular rate Rhythm: regular rhythm Heart Sounds: S1 normal, S2 normal and no murmurs Pulses: radial pulses present bilaterally GI Inspection: normal to inspection Palpation: soft Skin General skin exam: no rashes or lesions noted Neuro General: patient alert, patient awake and patient oriented x3 Extrem General: no clubbing, no cyanosis and edema (3+ pitting to knee) Laterality: bilateral Psych Mental Status: mental status grossly normal Affect: normal affect Attitude: cooperative Results Last Vital Signs Temp 36.7 C 12/26/20 23:27 Pulse 81 12/26/20 23:27 Resp 18 12/26/20 23:27 BP 123/76 12/26/20 23:27 Pulse Ox 91 L 12/26/20 23:27 Labs Result diagrams: 12/27/20 06:12 12/27/20 06:12 Labs: Laboratory Results - last 24 hr 12/27/20 06:12 Sodium 143 Potassium 4.9 Chloride 102 Carbon Dioxide 41.9 H Anion Gap -0.9 L BUN 19 H D Creatinine 1.0 Estimated GFR/1.73 m2 55.47 Glucose 122 H Calcium 8.9 NT-Pro-B Natriuret Pep 1163 H
[2020-12-27] MEDS: Furosemide 20 MG/2 ML VIAL IVP ×2 (07:28→16:00)
[2020-12-27] MEDS: Normal Saline Flush 10 ML SYR IVP ×2 (07:28→21:02)
[2020-12-27] MEDS: Pantoprazole 40 MG TABCR PO (07:28)
[2020-12-27 07:29] LABS: Platelet Count 108 10^3/uL (130-400)
[2020-12-27] MEDS: Enoxaparin 40 MG/0.4 ML SYR SC (08:29)
[2020-12-27] MEDS: predniSONE 20 MG TAB 40 MG PO (08:29)
[2020-12-27] MEDS: Doxycycline Hyclate 100 MG CAP PO ×2 (08:29→21:01)
--- NOTE | 2020-12-27 08:45 | PDOC.CMPRO ---
- If Service Date Differs Date of service: 12/27/20 Time of Service: 08:45 Care Management Progress Note S/O: Mariam was sitting in her chair when CM met with her. She was pleasant, talkative and easily engaged in conversation. Mariam does not have a PCP. She is aware that CM can provide her with a referral to Dr. Luna, [facility] using the on-call calendar for her discharge follow up needs. She wants to talk with her brother Bradley before making any decisions. Mariam has an updated list of PCP's, CM will continue to support. A: 65 year old female admitted to [facility] on 12/25/2020 for COPD, CHF, Cellulites P: Mariam will be discharged home when medically clear. Community referrals are undetermined at this time. Mariam reports that her Friend Keerthi Good will arrange transportation at time of discharge. CM continues to support.
--- NOTE | 2020-12-27 12:10 | WOUNDCONS ---
- If Service Date Differs Date of service: 12/27/20 Time of Service: 12:10 Wound Initial Evaluation Narrative: Pt agreeable to wound consult. signed photo consent. All pertinent information related to wound consult reviewed in Pt's chart including H&P, progress notes, labs, etc. Mariam tells me she nicked her leg shaving about 30 years ago and ever since then shes had a spot on her tucker. She reports it got red a few days ago and she came to the hospital despite not liking doctors and hospitals. prior to cleaning area Pt had a white spot with some clear drainage oozing from it. Area was cleansed with sterile gauze and saline. white area appeared to just be dried, skin which came off easily. Nothing to culture or swab. Blanched area remains, superficial skin loss noted, measuring 0.5x0.5x0.1.See photo below. I would expect drainage from this area only because it appears to be a port of exit for fluid in Pt's leg to escape. skin prep was applied to protect skin and a Mepliex placed over area to absorb any fluid escaping through opening. Not true wound drainage. Notable, erythema area is not warm, but cool to touch. Educated pt on importance of smoking cessation and proper nutrition for wound healing and overall health. I would be happy to follow-up with patient if she is still here next Saturday. Thank you for the consult. - Wound Left lower tucker Wound Type: Other (? shaving injury; superficial skin loss) Wound General Appearance: Asymptomatic Wound Length: 0.5 cm Wound Width: 0.5 cm Wound Depth: 0.1 cm Wound Drainage Amount: Minimal (3rd space fluid escaping thorugh skin break, clear.) - Circulation, Sensation, Motion Edema Degree: 3+ Additional Other Comments: bilateral LE's are edematous, +3-4 Pitting, ? lymphedema. - CEZAR Comment:: n/a - Pain Pain Level: 0 Pain Scale Used: Adult - Recomendation Recomendation:: Cleanse area on Left Tucker with NS. Pat dry. Apply skin prep. Place Mepilex w/border to open area to absorb drainage. Change every 7 days and PRN.
--- NOTE | 2020-12-27 17:01 | PGE_ITS ---
Date of Service Date of service: 12/27/20 Time of Service: 17:01 Assessment and Plan Assessment and plan (1) Pneumonia: Status: Acute Assessment and plan: continue Ceftriaxone and doxycycline. If she remains afebrile and continues to improve she could go home possibly tomorrow on 5 more days of oral antibiotics. This would be total of 7 days including her inpatient days and should be more than adequate for CAP and cellulitis and UTI. She should go home on 5 days of prednisone. No need for steroid taper. She is not chronically steroid dependent. Urine Legionella and strep antigens ordered. Qualifiers: Pneumonia type: due to unspecified organism Laterality: right Lung location: middle lobe of lung Qualified Code(s): J18.9 - Pneumonia, unspecified organism (2) Respiratory failure with hypoxia and hypercapnia: Status: Acute Assessment and plan: as above Qualifiers: Chronicity: acute on chronic Qualified Code(s): J96.21 - Acute and chronic respiratory failure with hypoxia; J96.22 - Acute and chronic respiratory failure with hypercapnia (3) Pulmonary hypertension: Status: Chronic Assessment and plan: Her bilateral leg edema is d/t her PHTN and this is d/t her COPD +/- YANIRA (needs outpatient workup w/ PSG; Dr. Galloway will follow up on this) (4) Cellulitis of left leg: Status: Acute Assessment and plan: wound care nurse's notes and treatments are appreciated. Topical treatment of superficial abrasion but oral antibiotics for 5 more day from discharge should be adequate. She primarily needs to quit smoking, get appropriate workup and treatment for YANIRA and take her diuretics. I think once her leg edema has improved, she ought to be fitted for thigh high compression hoses. (5) COPD exacerbation: Status: Acute Assessment and plan: As above. She would benefit from Spiriva and a LABA/ICS. However, I will defer to Dr. Galloway's decision about this. I expect that she wants outpatient PFT's before deciding on buttermaker continuous churn long acting bronchodilators. (6) CHF (congestive heart failure): Status: Suspected Assessment and plan: CHF was suspected based on her elevated BNP and bilateral leg edema. However her echocardiogram neither supports a diagnosis for HFPEF nor HFREF. It does support a diagnosis of pulmonary hypertension that is moderate at 45 mm. I think that she is primarily group 3 PHTN, i.e. due to chronic lung disease/chronic hypoxemia. Qualifiers: Heart failure type: right-sided Heart failure chronicity: chronic Qualified Code(s): I50.812 - Chronic right heart failure (7) Acute UTI: Status: Acute Assessment and plan: cont. Rocephin for now. Once final id and sensitivities are determined then will decide on an antibiotic that covers both. Levaquin may be ideal coverage for both although w/ her being on steroids there is risk for tendinopathy. (8) Pulmonary nodule: Status: Acute Assessment and plan: patient w/ multiple subpleural subcentimeter lung nodules but also w/ larger nodules 10 mm x 9 mm nodule in the RLL, 9 mm x 6 mm nodular infiltrate in posterior right lower lobe basal segment She does not have hilar or mediastinal adenopathy. Goal will be to treat her for CAP and then re- image her in a few weeks. If repeat CT is unclear then consider PET/CT. Subjective Subjective Patient reports: feels better Interval history since last seen: Dyspnea is improved. Cough is minimally productive of clear to white mucous. No fever or chills. Legs are still swollen. Exam Narrative Exam Narrative: Morbidly obese white female who is alert and oriented x 3. She is sitting up in her chair conversing w/ her brother and not having any dyspnea w/prolonged conversation. Lungs w end expiratory wheezed but no rhonchi. She has bibasilar fine cellophane type rales; Heart: regular rate and rhythm Abdomen: obese, soft, nontender Legs: 3+pitting bilateral leg edema from feet up to her knees. Left lower tucker w/ redness; the superficial skin abrasion is now covered by wound dressing Objective Last Vital Signs Temp 36.6 C 12/27/20 08:00 Pulse 88 12/27/20 13:03 Resp 24 12/27/20 13:03 BP 130/78 12/27/20 08:00 Pulse Ox 93 12/27/20 13:03 Laboratory Results - last 24 hr 12/25/20 12/27/20 12/27/20 19:34 06:12 06:12 WBC 9.66 RBC 5.37 H Hgb 14.9 Hct 50.8 H MCV 94.6 MCH 27.7 MCHC 29.3 L RDW 16.6 H Plt Count 108 L MPV 11.2 H Sodium 143 Potassium 4.9 Chloride 102 Carbon Dioxide 41.9 H Anion Gap -0.9 L BUN 19 H D Creatinine 1.0 Estimated GFR/1.73 m2 55.47 Glucose 122 H Calcium 8.9 NT-Pro-B Natriuret Pep 1163 H Path Cons Comment SEE COMMENT Reviewed Pertinent PMH: Yes Objective Narrative Objective Narrative: morning labs reviewed including her CBC, BMP, BNP and urine culture. She is growing two different gram negative rods on her urine. sensitivity is pending. BMP demonstrates stable renal function but w/ rising HCO3 level probably d/t contraction alkalosis from diuretics. She has no elevation of her WBC. Dr. Galloway's consult note appreciated. Patient to follow up w/ her regarding her COPD and her lung nodules.
[2020-12-27] MEDS: cefTRIAXone 1 GM/50 ML BAG IVPB (21:01)
[2020-12-28] VITALS (11 sets, daily range): BP systolic 124–143; BP diastolic 78–82; PULSE 75–87; RESP 2–24; TEMP 36.1–36.8; O2SAT 92–93
[2020-12-28] MEDS: Doxycycline Hyclate 100 MG CAP PO ×2 (08:20→19:47)
[2020-12-28] MEDS: Pantoprazole 40 MG TABCR PO (08:20)
[2020-12-28] MEDS: predniSONE 20 MG TAB 40 MG PO (08:20)
[2020-12-28] MEDS: Furosemide 20 MG/2 ML VIAL IVP ×2 (08:20→15:46)
[2020-12-28] MEDS: Normal Saline Flush 10 ML SYR IVP ×2 (08:21→15:46)
[2020-12-28] MEDS: Enoxaparin 40 MG/0.4 ML SYR SC (08:21)
[2020-12-28] MEDS: Acetaminophen 325 MG TAB 650 MG PO (08:23)
[2020-12-28] MEDS: Albuterol/Ipratropium 3 ML UPD VIAL UPD ×4 (08:33→19:47)
--- NOTE | 2020-12-28 08:34 | CMPROGNOTE_ITS ---
- If Service Date Differs Date of service: 12/28/20 Time of Service: 08:34 Care Management Progress Note S/O: Mariam was lying in bed when CM met with her. She was pleasant, talkative and easily engaged in conversation. She shared that she let her healthcare lapse years ago because she was fearful that doctors would point out her imperfections and be judgmental about her state of health. Mariam is willing to let CM help her arrange a hospital follow up appointment with Julieth Moyer from [facility], until she can establish care with a provider of her choice. Mariam has a list of local providers and will reach out to Dr. Mariano's office. In addition, Mariam has not had a cigarette in 3 days. Shes declined nicotine replacement during her admission and feels abstinence from nicotine is going better than she expected. Mariam shares that when she goes home she wont have the will power to stay away from cigarettes. To help her with this, Mariam was agreeable to meet with the tobacco preventionist today. A follow up is planned for Saturday. A: 65 year old female admitted to [facility] on 12/25/2020 for COPD, CHF, Cellulites P: Mariam will be discharged home when medically clear. Mariam will follow up with [facility] and Pulmonology. Mariam reports that her Friend Keerthi Good will arrange transportation at time of discharge. CM continues to support.
--- NOTE | 2020-12-28 15:32 | PGE_ITS ---
Date of Service Date of service: 12/28/20 Time of Service: 15:32 Assessment and Plan Assessment and plan (1) Pneumonia: Status: Acute Assessment and plan: day # 3 Rocephin/doxycycline. awaiting sputum and urine studies. cont. prednisone 40 mg daily, wean oxygen as tolerated w/ acceptance of 88% or higher. check ambulatory pulse oximetry prior to discharge to assess her oxygen needs Qualifiers: Pneumonia type: due to unspecified organism Laterality: right Lung location: middle lobe of lung Qualified Code(s): J18.9 - Pneumonia, unspecified organism (2) Respiratory failure with hypoxia and hypercapnia: Status: Acute Assessment and plan: as above Qualifiers: Chronicity: acute on chronic Qualified Code(s): J96.21 - Acute and chronic respiratory failure with hypoxia; J96.22 - Acute and chronic respiratory failure with hypercapnia (3) Pulmonary hypertension: Status: Chronic Assessment and plan: Her bilateral leg edema is d/t her PHTN and this is d/t her COPD +/- YANIRA (needs outpatient workup w/ PSG; Dr. Galloway will follow up on this) (4) Cellulitis of left leg: Status: Acute Assessment and plan: cont. antibiotics as above. will need to be fitted for compression stockings once her cellulitis has cleared. (5) COPD exacerbation: Status: Acute Assessment and plan: As above. She would benefit from Spiriva and a LABA/ICS. However, I will defer to Dr. Galloway's decision about this. I expect that she wants outpatient PFT's before deciding on jail long acting bronchodilators. (6) Acute UTI: Status: Acute Assessment and plan: cont. Rocephin for now. Once final id and sensitivities are determined then will decide on an antibiotic that covers both. Levaquin may be ideal coverage for both although w/ her being on steroids there is risk for tendinopathy. (7) Pulmonary nodule: Status: Acute Assessment and plan: patient w/ multiple subpleural subcentimeter lung nodules but also w/ larger nodules 10 mm x 9 mm nodule in the RLL, 9 mm x 6 mm nodular infiltrate in posterior right lower lobe basal segment She does not have hilar or mediastinal adenopathy. Goal will be to treat her for CAP and then re- image her in a few weeks. If repeat CT is unclear then consider PET/CT. (8) Discharge planning issues: Status: Acute Assessment and plan: patient will return home and follow up in [facility] until she can find a PCP of her choosing. she is favoring seeing Dr. Linn whom her friend goes to. She may or may not need home health upon discharge. I anticipate couple more days stay to stabilize her COPD and CAP. Subjective Subjective Patient reports: feels better; denies shortness of breath Interval history since last seen: Patient denies dyspnea or CP. She has minimally productive cough of mostly clear to white mucous but occasional small amount of yellow. Sputum cultures and urine for legionella and Strep antigen were ordered and are pending and sputum for mycoplasm has been ordered. She continues to receive diuretics although I have explained to her that we can not complete resolve/control her leg edema w/ diuretic. She will need to look into wearing compression hose. Her echo show normal LV and RV function but moderate pulmonary hypertension (RVSP 45 mm). She is now down to 2 LPM on her oxygen. I told her that we would continue parenteral antibiotics through today and then switch for oral and once her oxygen requirments have improved further we will get ambulatory pulse oximetry. She understands that she needs to quit smoking and she met w/ her smoking cessation counselor this afternoon. She says that she slept w/ the BIPAP through the night and had the best sleep of her life. I told her that Dr. Galloway will set her up for sleep study as outpatient to make the diagnosis of sleep apne which I am sure she has (she frequently has woken herself up from snoring). Exam Narrative Exam Narrative: Pleasant, amiable obese female sitting up in her bed. No respiratory distress, able to speak in complete paragraphs. Lungs: scattered end expiratory wheezes, without rhonchi Heart: irregular w/ frequent extrasystole Abdomen: soft, obese, nontender w/ active bowel sounds Legs: redness over left tucker is improving; she still has tense bilateral leg edema 3+ Objective Last Vital Signs Temp 36.6 C 12/28/20 08:18 Pulse 85 12/28/20 11:37 Resp 20 12/28/20 11:37 BP 143/82 H 12/28/20 08:18 Pulse Ox 92 12/28/20 11:37 Reviewed Pertinent PMH: Yes Objective Narrative Objective Narrative: Wt is essentially unchanged fluctuating from 114 to 115 kg.
[2020-12-28] MEDS: cefTRIAXone 1 GM/50 ML BAG IVPB (19:47)
[2020-12-28 20:40] LABS: Legionella Ag Detection Urine Negative (Negative)
[2020-12-28 20:50] LABS: Anion Gap -0.2 mmol/L (3-11); BUN 22 mg/dL (7-18); CO2 38.2 mmol/L (21.0-32.0); CREATININE 0.9 mg/dL (0.55-1.02); Calcium 8.9 mg/dL (8.5-10.1); Chloride 100 mmol/L (98-107); Glucose 188 mg/dL (74-106); Potassium 4.8 mmol/L (3.5-5.1); Sodium 138 mmol/L (136-145)
[2020-12-29] VITALS (9 sets, daily range): BP systolic 118–147; BP diastolic 64–71; PULSE 75–91; RESP 2–19; TEMP 35.3–36.6; O2SAT 89–96
[2020-12-29 07:04] LABS: HCT 51.2 % (36.0-46.0); HGB 15.2 g/dL (11.2-15.7); MCH 27.7 pg (27.0-33.0); MCHC 29.7 % (32.0-36.0); MCV 93.4 fL (80-95); MPV 10.7 fL (8.0-11.0); RBC 5.48 10^6/uL (3.93-5.22); RDW 16.5 % (11.7-14.6); RDW-SD 56.6 fL; WBC 9.93 10^3/uL (4.4-10.8)
[2020-12-29 07:15] LABS: Anion Gap 1.3 mmol/L (3-11); BUN 18 mg/dL (7-18); CO2 43.7 mmol/L (21.0-32.0); CREATININE 0.8 mg/dL (0.55-1.02); Calcium 9.4 mg/dL (8.5-10.1); Chloride 99 mmol/L (98-107); Glucose 81 mg/dL (74-106); Potassium 4.6 mmol/L (3.5-5.1); Sodium 144 mmol/L (136-145)
[2020-12-29 07:26] LABS: Platelet Count 95 10^3/uL (130-400)
[2020-12-29] MEDS: Enoxaparin 40 MG/0.4 ML SYR SC (08:16)
[2020-12-29] MEDS: Normal Saline Flush 10 ML SYR IVP ×2 (08:17→20:31)
[2020-12-29] MEDS: Furosemide 20 MG/2 ML VIAL IVP (08:17)
[2020-12-29] MEDS: predniSONE 20 MG TAB 40 MG PO (08:17)
[2020-12-29] MEDS: Doxycycline Hyclate 100 MG CAP PO ×2 (08:18→20:32)
[2020-12-29] MEDS: Pantoprazole 40 MG TABCR PO (08:18)
[2020-12-29] MEDS: Albuterol/Ipratropium 3 ML UPD VIAL UPD ×4 (09:02→20:31)
--- NOTE | 2020-12-29 09:11 | CMPROGNOTE_ITS ---
- If Service Date Differs Date of service: 12/29/20 Time of Service: 09:11 Care Management Progress Note S/O: Mariam was sitting up in bed when CM met with her. She was pleasant, talkative and easily engaged in conversation. She met with the tobacco cessation specialist yesterday and would like to meet with him again before she is discharged. She does not have a walker or cane at home and reports that PT thought she would do best with a rolling walker with a seat. CM will discuss options for getting one tomorrow. CM continue to follow. A:65 year old female admitted to [facility] on 12/25/2020 for COPD, CHF, Cellulites P: Mariam will be discharged home when medically clear with home O2. Mariam will follow up with [facility] (Dr. Moyer) and Pulmonology (Dr. Galloway). Mariam reports that her Friend Keerthi Good will arrange transportation at time of discharge. CM continues to support.
--- NOTE | 2020-12-29 10:15 | IN_ITS ---
Date of service: 12/29/20 Time of Service: 10:15 PT Notes Visit Reasons: COPD, CHF, cellulitis Physical Therapy Inpatient Initial Evaluation Date: 12/30/2020 Referring Doctor: Ander Whitt MD PT Orders: PT CONSULT: Exacerbation of chronic condition Precautions: On droplet precautions. Activity as tolerated. Oxygen supplementation at 2 L/min via NC. Patient Profile/Admitting Diagnosis: Patient is a 65-year-old female who presented to the ED on 12/25/2020 with short of breath and leg swelling. Patient is dosed with pneumonia, COPD exacerbation, CHF exacerbation, respiratory failure with hypoxia, cellulitis of the left leg, acute UTI, and a pulmonary nodule. PMHX: Unremarkable Social History/Home Situation: Lives alone in a small efficiency apartment here in town with a small lift/mini step onto the entrance of the apartment building. Her apartment is about 30 to 40 feet from the main entrance. Independent with all aspects of ADLs although she states that she no longer drives, her friend has been very kind enough to bring her to her parents as needed. 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 Smoker. Equipment Owned/DME: None Subjective: Agreeable to PT consult. States that she did have 1 fall in the past 12 months. Objective: General Observation: Erythema and swelling to bilateral legs with the right more swollen than the left. Wound dressing to left anterior distal leg. Oxygen supplementation via NC at 2 L/min. Mental Status: Alert and oriented as to person, place, time, and purpose. Able to pay attention, focus, and respond appropriately. Pain: Denies ROM: Right Upper Extremity: Shoulder Flexion WFL. Shoulder abduction WFL. Elbow flexion WFL. Wrist flexion WFL. Functional opening and closing of hand WFL. Left Upper Extremity: Shoulder Flexion WFL. Shoulder abduction WFL. Elbow flexion WFL. Wrist flexion WFL. Functional opening and closing of hand WFL. Right Lower Extremity: Hip flexion WFL. Hip abduction WFL. Knee flexion WFL. Ankle dorsiflexion WFL. Ankle plantarflexion WFL. Left Lower Extremity: Hip flexion WFL. Hip abduction WFL. Knee flexion WFL. Ankle dorsiflexion WFL. Ankle plantarflexion WFL. Strength: Right Upper Extremity: Shoulder flexors 5/5. Shoulder abductors 5/5. Elbow flexors 5/5. Elbow extensors 5/5. Popcorn Machine Operator strong. Left Upper Extremity: Shoulder flexors 5/5. Shoulder abductors 5/5. Elbow flexors 5/5. Elbow extensors 5/5. Popcorn Machine Operator strong. Right Lower Extremity: Hip flexors 4/5. Hip abductors 4/5. Knee flexors 4/5. Knee extensors 4/5. Ankle dorsiflexors 4/5. Ankle plantarflexors 4/5. Left Lower Extremity: Hip flexors 4/5. Hip abductors 4/5. Knee flexors 4/5. Knee extensors 4/5. Ankle dorsiflexors 4/5. Ankle plantarflexors 4/5. Bed Mobility/Transfers: Supine to sit independent Sit to supine independent Sit to stand supervision Stand to sit supervision Bed to reclining chair supervision Reclining chair to bed supervision Gait: Instructed patient with level surface ambulation of 150 feet requiring assist no assistive and needing to hold onto the wall along the way, minimal S OB. Using a front wheel walker, patient appeared more stable and was able to negotiate 150 feet with no path deviation, decreased SOB.. Erica decreased. Step height decreased. Step length decreased. Minimal shortness of breath. Balance: Static Sitting: Normal Dynamic Sitting: Normal Static Standing: Good Dynamic Standing: Fair Special Tests: Mobility Limitations Standardized Measure [facility] 6 clicks Basic Mobility Inpatient Short Form: Raw Score: 21 CMS Score: 29% deficit Informed Consent/Education: Patient was instructed in purpose of PT consult and plan of care. Agreeable to proceed with established PT POC to achieve personal goals. Assessment: Mariam demonstrates functional mobility decline requiring the use of front wheeled walker for all mobility ADL performance, impairment in balance, and decreased activity tolerance. Patient presents with clinical signs and symptoms consistent with current/admitting diagnoses that have resulted to mobility limitations, gait instability, generalized weakness, and overall ADL decline as demonstrated by the following impairment level findings: 1. Decreased strength to B UE/LE major muscle groups 2. Impaired sitting/standing balance 3. Impaired activity tolerance 4. Shortness of breath 5. Swelling in BLE with right more affected than the left Impairments are contributing to the following functional limitations: 1. Decline in transfer skills 2. Difficulty with ambulation without assistive device and physical assistance 3. Increased completion time for mobility ADL performance 4. Increased risk for falls 5. Difficulty with managing steps alone safely Patient is assessed as a [id number] moderate complexity based on the following: History: 65 [id number] with past medical history as indicated above Examination: Demonstrable impairment in strength, balance, and mobility level with underlying impairments and functional limitations as exhibited above as well as deficit score of 29% utilizing the [facility] Mobility Inpatient Short Form Presentation: Evolving Decision Makin moderate complexity Goals: Goals X1 week 1. Supine-Sit independent 2. Sit-Supine independent 3. Sit-Stand independent 4. Stand-Sit independent with Rollator 5. Bed-Chair independent with Rollator 6. Chair-Bed independent with Rollator 7. Independent gait on level surface with use of Rollator for at least 300 feet without report of pain nor dyspnea 8. Independent stair negotiation with no rails for at least 1 step without report of pain nor dyspnea 9. Independent with home exercise program 10. Good static and dynamic standing balance/tolerance Plan of Care/Treatment Plan: 1-2x/day, 7 days/week x 1 week. Plan of care has been reviewed with the INGREDIENT SCALER providing the service under Physical Therapy direction. Initiate Physical Therapy intervention for pain management as needed, strengthening, bed mobility, transfers, gait, stairs, balance training, and use of assistive device. DISCHARGE RECOMMENDATIONS: Patient will benefit from home health PT services in order to progress mobility level using least restrictive assistive ambulatory device, assess home safety, identify additional equipment needs, and establish a functional maintenance program that will increase ability of patient to remain at home. TREATMENT CODE/TIME: 71710 x 20 minutes, 73886 x 18 minutes beginning at 10:15 AM. Thank you for the opportunity to participate in the care of this patient. Erica Salazar PT, DPT, CLT [facility] [place], [place]
--- NOTE | 2020-12-29 14:52 | PGE_ITS ---
Date of Service Date of service: 12/29/20 Time of Service: 14:52 Assessment and Plan Assessment and plan (1) Pneumonia: Status: Acute Assessment and plan: day # 4 Rocephin/doxycycline. awaiting sputum and urine studies. cont. prednisone 40 mg daily, wean oxygen as tolerated w/ acceptance of 88% or higher. check ambulatory pulse oximetry prior to discharge to assess her oxygen needs, however I expect she is going to require supplemental oxygen when she returns home. Qualifiers: Pneumonia type: due to unspecified organism Laterality: right Lung location: middle lobe of lung Qualified Code(s): J18.9 - Pneumonia, unspecified organism (2) Respiratory failure with hypoxia and hypercapnia: Status: Acute Assessment and plan: as above. Complete antibiotic therapy. We will discharge her home in the morning on supplemental oxygen. Patient needs evaluation for YANIRA as she probably is going to need BiPAP at home. Patient will follow up with Dr. Rojas in the pulmonary clinic who then set the patient up for PFTs and PSG and will follow up on repeat chest imaging regarding her lung nodules. Qualifiers: Chronicity: acute on chronic Qualified Code(s): J96.21 - Acute and chronic respiratory failure with hypoxia; J96.22 - Acute and chronic respiratory failure with hypercapnia (3) Pulmonary hypertension: Status: Chronic Assessment and plan: Her bilateral leg edema is d/t her PHTN and this is d/t her COPD +/- YANIRA (needs outpatient workup w/ PSG; Dr. Galloway will follow up on this) (4) Cellulitis of left leg: Status: Acute Assessment and plan: Improving on current antibiotic regimen. Upon discharge tomorrow we will give her 5 more days of oral antibiotics. She needs to be set up for compression stockings as an outpatient. (5) COPD exacerbation: Status: Acute Assessment and plan: Patient would benefit from L.A.M.A. (Spiriva) and/or L.A.B.A/I.C.S. (Symbicort) however I will defer to Dr. Rojas's decision regarding this. I expect that she probably wants to have outpatient PFTs prior to initiating maintenance therapy. (6) Acute UTI: Status: Acute Assessment and plan: E. coli UTI sensitive to Rocephin and other cephalosporins. I think upon discharge she should have been adequately covered after receiving 5 days of Rocephin. (7) Pulmonary nodule: Status: Acute Assessment and plan: patient w/ multiple subpleural subcentimeter lung nodules but also w/ larger nodules 10 mm x 9 mm nodule in the RLL, 9 mm x 6 mm nodular infiltrate in posterior right lower lobe basal segment She does not have hilar or mediastinal adenopathy. Goal will be to treat her for CAP and then re- image her in a few weeks. If repeat CT is unclear then consider PET/CT. (8) Discharge planning issues: Status: Acute Assessment and plan: Patient will be discharged home with supplemental oxygen and she will receive a referral for home health nursing to follow-up regarding her COPD and pneumonia as well as follow-up of her left leg wound. Subjective Subjective Interval history since last seen: Patient is improving she is afebrile. Cough is become a little more productive and she is bringing up yellowish mucus. She denies any chest tightness and no dyspnea at rest. This morning she took her BiPAP mask off because it was uncomfortable and put her own nasal cannula on but unfortunately the nasal cannula was not turned on at the wall and when nursing came into check on her oxygen saturation was down in the 70s per cent. She is now back on nasal cannula at 2 L/min with oxygen saturation of 96%. Left leg is improving the redness is gone down. Still has chronic bilateral leg edema. CBC shows no leukocytosis. Exam Narrative Exam Narrative: Pleasant middle-age female who is sitting up at the bedside able to converse in complete paragraphs without dyspnea. She is wearing her oxygen at 2 L/min per nasal cannula. Lungs with fine bibasilar rales no rhonchi no wheezes Heart distant heart tones but regular without murmur rub or gallop Abdomen is obese soft nontender Lower extremities with 3+ edema but it is now softer not tense and the erythema in her left pretibial surface is gone away. She is just left with a chronic dependent rubor to her legs. Objective Last Vital Signs Temp 36.6 C 12/29/20 07:53 Pulse 86 12/29/20 12:47 Resp 17 12/29/20 12:47 BP 141/66 H 12/29/20 07:53 Pulse Ox 96 12/29/20 12:47 Laboratory Results - last 24 hr 0812/28/20 12/29/20 08:25 20:17 06:15 WBC 9.93 RBC 5.48 H Hgb 15.2 Hct 51.2 H MCV 93.4 MCH 27.7 MCHC 29.7 L RDW 16.5 H Plt Count 95 L MPV 10.7 Sodium 138 Potassium 4.8 Chloride 100 Carbon Dioxide 38.2 H Anion Gap -0.2 L BUN 22 H Creatinine 0.9 Estimated GFR/1.73 m2 >= 60.00 Glucose 188 H Calcium 8.9 Urine Legionella Ag Negative 12/29/20 06:15 WBC RBC Hgb Hct MCV MCH MCHC RDW Plt Count MPV Sodium 144 Potassium 4.6 Chloride 99 Carbon Dioxide 43.7 H Anion Gap 1.3 L BUN 18 Creatinine 0.8 Estimated GFR/1.73 m2 >= 60.00 Glucose 81 D Calcium 9.4 Urine Legionella Ag
[2020-12-29 14:57] LABS: Streptococcus Pneumoniae Ag, U Negative (Negative)
--- NOTE | 2020-12-29 15:15 | PT.INTREAT ---
PT Notes Visit Reasons: COPD, CHF, cellulitis 12/29/2020 SUBJECTIVE: Pt stating she is feeling pretty good. Minimal SOB noted today and her leg edema is improving. OBJECTIVE: TRANSFERS Sit to stand: S Stand to sit: S GAIT Device: SPC/4WW Weight bearing: Full Assist: CGA with SPC, SBA with 4WW Distance: 150'x2 Deviation: LOB and path deviations with use of SPC, none with 4WW THEREX: Instruct in hourly exercises including seated LAQ and seated hip flexion. Pt education: Review proper use of 4WW including brakes and transfers. ASSESSMENT: Pt demonstrates increased safety with gait when utilizing 4WW. Pt struggles with the coordination using SPC and continues to have LOB and gait deviations. Recommend she continue use of 4WW and may benefit having this at home as well to increase her independence and activity level. PLAN: Continue current POC. Treatment time: 30 minutes([id number]) Chelsea Trejo PTA Clinic location: [facility] [place], [place]
[2020-12-29] MEDS: cefTRIAXone 1 GM/50 ML BAG IVPB (20:25)
[2020-12-29] MEDS: Melatonin 3 MG TAB PO (20:32)
[2020-12-30] VITALS (7 sets, daily range): BP systolic 132–149; BP diastolic 74–81; PULSE 75–88; RESP 2–22; TEMP 35.6–36.1; O2SAT 84–96
[2020-12-30 00:59] LABS: Mycoplasma Pneumoniae PCR Negative; Specimen source SPUTUM
[2020-12-30 07:47] LABS: Anion Gap -0.8 mmol/L (3-11); BUN 19 mg/dL (7-18); CO2 43.8 mmol/L (21.0-32.0); CREATININE 0.8 mg/dL (0.55-1.02); Calcium 8.5 mg/dL (8.5-10.1); Chloride 100 mmol/L (98-107); Glucose 98 mg/dL (74-106); NT-proBNP 326 pg/mL (<300); Potassium 4.1 mmol/L (3.5-5.1); Sodium 143 mmol/L (136-145)
[2020-12-30] MEDS: Albuterol/Ipratropium 3 ML UPD VIAL UPD ×2 (08:35→18:04)
[2020-12-30] MEDS: Enoxaparin 40 MG/0.4 ML SYR SC (08:40)
[2020-12-30] MEDS: Pantoprazole 40 MG TABCR PO (08:40)
[2020-12-30] MEDS: Furosemide 20 MG TAB PO (08:40)
[2020-12-30] MEDS: Doxycycline Hyclate 100 MG CAP PO (08:40)
[2020-12-30] MEDS: predniSONE 20 MG TAB 40 MG PO (08:40)
--- NOTE | 2020-12-30 10:55 | INDS_ITS ---
PT Notes Visit Reasons: COPD, CHF, cellulitis Physical Therapy Inpatient Discharge Summary Date: 12/30/2020 Dates of Service: 12/29/2020 through 12/30/2020 Referring Doctor: Ander Whitt MD PT Orders: PT CONSULT: Exacerbation of chronic condition Precautions: On droplet precautions. Activity as tolerated. Oxygen supplementation at 2 L/min via NC. Patient Profile/Admitting Diagnosis: Patient is a 65-year-old female who presented to the ED on 12/25/2020 with short of breath and leg swelling. Patient is dosed with pneumonia, COPD exacerbation, CHF exacerbation, respiratory failure with hypoxia, cellulitis of the left leg, acute UTI, and a pulmonary nodule. PMHX: Unremarkable Social History/Home Situation: Lives alone in a small efficiency apartment here in town with a small lift/mini step onto the entrance of the apartment building. Her apartment is about 30 to 40 feet from the main entrance. Independent with all aspects of ADLs although she states that she no longer drives, her friend has been very kind enough to bring her to her parents as needed. 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 Smoker. Equipment Owned/DME: None Subjective: Agreeable to session prior to discharge today. Objective: General Observation: Erythema and swelling to bilateral legs with the right more swollen than the left. Wound dressing to left anterior distal leg. Oxygen supplementation via NC at 2 L/min. Mental Status: Alert and oriented as to person, place, time, and purpose. Able to pay attention, focus, and respond appropriately. Pain: Denies ROM: Right Upper Extremity: Shoulder Flexion WFL. Shoulder abduction WFL. Elbow flexion WFL. Wrist flexion WFL. Functional opening and closing of hand WFL. Left Upper Extremity: Shoulder Flexion WFL. Shoulder abduction WFL. Elbow flexion WFL. Wrist flexion WFL. Functional opening and closing of hand WFL. Right Lower Extremity: Hip flexion WFL. Hip abduction WFL. Knee flexion WFL. Ankle dorsiflexion WFL. Ankle plantarflexion WFL. Left Lower Extremity: Hip flexion WFL. Hip abduction WFL. Knee flexion WFL. Ankle dorsiflexion WFL. Ankle plantarflexion WFL. Strength: Right Upper Extremity: Shoulder flexors 5/5. Shoulder abductors 5/5. Elbow flexors 5/5. Elbow extensors 5/5. Insurance Claims Processor strong. Left Upper Extremity: Shoulder flexors 5/5. Shoulder abductors 5/5. Elbow flexors 5/5. Elbow extensors 5/5. Insurance Claims Processor strong. Right Lower Extremity: Hip flexors 4/5. Hip abductors 4/5. Knee flexors 4/5. Knee extensors 4/5. Ankle dorsiflexors 4/5. Ankle plantarflexors 4/5. Left Lower Extremity: Hip flexors 4/5. Hip abductors 4/5. Knee flexors 4/5. Knee extensors 4/5. Ankle dorsiflexors 4/5. Ankle plantarflexors 4/5. Bed Mobility/Transfers: Supine to sit independent Sit to supine independent Sit to stand independent Stand to sit independent Bed to reclining chair independent Reclining chair to bed independent Gait: Instructed patient with level surface ambulation of 250 feet requiring supervision with 4WW. Increased stability and decreased SOB with AD. No LOB. Balance: Static Sitting: Normal Dynamic Sitting: Normal Static Standing: Good Dynamic Standing: Fair Assessment: Mariam demonstrates functional mobility decline requiring the use of front wheeled walker for all mobility ADL performance, impairment in balance, and decreased activity tolerance. Patient continues to present with clinical signs and symptoms consistent with current/admitting diagnoses that have resulted to mobility limitations, gait instability, generalized weakness, and overall ADL decline as demonstrated by the following impairment level findings: 1. Decreased strength to B UE/LE major muscle groups 2. Impaired sitting/standing balance 3. Impaired activity tolerance 4. Shortness of breath 5. Swelling in BLE with right more affected than the left Impairments are continuing to contribute to the following functional limitations: 1. Decline in transfer skills 2. Difficulty with ambulation without assistive device and physical assistance 3. Increased completion time for mobility ADL performance 4. Increased risk for falls Goals: Goals X1 week 1. Supine-Sit independent MET 2. Sit-Supine independent MET 3. Sit-Stand independent MET 4. Stand-Sit independent with Rollator MET 5. Bed-Chair independent with Rollator MET 6. Chair-Bed independent with Rollator MET 7. Independent gait on level surface with use of Rollator for at least 300 feet without report of pain nor dyspnea NOT MET 8. Independent stair negotiation with no rails for at least 1 step without report of pain nor dyspnea NOT MET 9. Independent with home exercise program NOT MET 10. Good static and dynamic standing balance/tolerance NOT MET DISCHARGE RECOMMENDATIONS: Patient will benefit from home health PT services in order to progress mobility level using least restrictive assistive ambulatory device, assess home safety, identify additional equipment needs, and establish a functional maintenance program that will increase ability of patient to remain at home. TREATMENT CODE/TIME: 89500 x 43 minutes beginning at 10:15 AM. Thank you for the opportunity to participate in the care of this patient. Erica Salazar PT, DPT, CLT [facility] [place], [place]
--- NOTE | 2020-12-30 13:49 | PDOC.CMDIS ---
- If Service Date Differs Date of service: 12/30/20 Time of Service: 13:49 LACE Index Scoring Tool - Questions: Length of Stay (in days): 4 - 6 Acuity (Admit via E.D.?): Yes Comorbidities: Chronic Pulmonary Disease E.D. Visits: 1 - Answers: Total Score: 10 Risk of Readmission: High Risk Care Management Discharge Reason for Hospitalization: COPD, CHF, Cellulites Discharge Plan: Discharge home via [facility] with home O2 through [facility]. Follow up with out patient providers. Purchase a rolling walker, insurance will not cover. Patient/Family Education Needs: Review discharge instructions and plan to follow up with out patient providers, ask me three. Services Needed at Discharge: Oxygen Therapy, Respiratory Care Services
--- NOTE | 2020-12-30 17:14 | DSE_ITS ---
DS: Diagnosis Discharge Diagnosis (1) Pneumonia: Status: Acute Asessment and Plan: Patient will complete 5 more days of Augmentin 875 mg p.o. twice daily along with prednisone 40 mg once daily for 5 more days. Patient was given prescription for Combivent Respimat 1 inhalation 4 times a day. (2) Respiratory failure with hypoxia and hypercapnia: Status: Resolved Asessment and Plan: Patient's acute respiratory failure has resolved but patient has chronic hypercarbia and chronic hypoxemia secondary to YANIRA and COPD. (3) Pulmonary hypertension: Status: Chronic (4) Cellulitis of left leg: Status: Resolved (5) COPD exacerbation: Status: Resolved Asessment and Plan: See below (6) Acute UTI: Status: Resolved (7) Pulmonary nodule: Status: Acute Asessment and Plan: Dr. Rojas indicated that she will perform follow-up imaging to evaluate her lung nodules as an outpatient. (8) Discharge planning issues: Status: Resolved Asessment and Plan: Follow-up with Julieth Luna and Dr. Annmarie Rojas. See below. Patient have follow-up chest x-ray and PFTs in 2 weeks and a BMP in 1 week. Discharge Plan Disposition Patient Disposition: HOME Condition: Stable Discharge Details Reason For Visit: COPD, CHF, cellulitis Admit Date/Time: 12/25/20 22:42 Admit Provider: Broderick Porter Attending Provider: Broderick Porter Primary Care Provider: Ekaterina Delong Hospital Course Hospital Course: This 65-year-old female smoker who has no primary care provider and has not received medical care for a number of years presents with chronic exertional dyspnea that is progressed over the last few weeks along with PND and orthopnea but no associated chest pain or pressure and bilateral leg edema. She had noticed a spot on her left lower leg that was red and began to ooze some drainage for last couple of days. In the ER she was noted to be absent of any fever but was noted to have 3+ pedal edema and a punctate skin injury over the left lower tucker that oozed some serous fluid and had surrounding erythema. She was afebrile at 36.7 on admission with stable vital signs but was hypoxic with an oxygen saturation of 82%. Labs were remarkable for polycythemia with a hemoglobin 16.9 g, hematocrit 54.8% and a platelet count 129,000. VBG demonstrated hypercarbia with a PCO2 of 77 and a pH 7.28. Carbon dioxide level was elevated 34.9. Rest of her electrolytes BUN and creatinine were normal. proBNP was elevated at 1981 and procalcitonin was less than 0.1. Serial troponin I levels were less than 0.05. Urinalysis was remarkable for cloudy urine with 30 mg/dL protein and positive nitrites small amount of leukocyte Estrace with 10-20 white cells and many bacteria. Chest CT scan was performed and showed no evidence of acute pulmonary emboli and no pulmonary infarctions no pleural effusions. However she was noted to have a 10 x 9 mm noncalcified nodule right lower lobe as well as smaller noncalcified subpleural nodules bilaterally. She had multifocal areas of subtle patchy infiltrates in both lungs and mild cardiomegaly without pulmonary edema. Chest x-ray performed at the same time on admission showed the heart to be upper limit of normal. Left lung was clear but a subtle density in the posterior basal segment of the right lower lobe behind the right heart shadow was noted possibly a nodule with no pleural effusions no pulmonary edema. Blood and urine cultures were obtained and the patient was started on empiric antibiotics with Rocephin and doxycycline. Patient was given 20 mg of furosemide and also methylprednisolone 125 mg. Patient was subsequently treated with methylprednisolone 40 mg but later was changed to prednisone 40 mg daily. She was given DuoNeb aerosol treatments and placed on enoxaparin 40 mg daily for DVT prophylaxis. She was treated with furosemide 20 mg IV twice daily from December 26 through December 28, 2020 after which she was put on oral furosemide 20 mg daily. Venous duplex study was done of her legs because of the significant bilateral leg edema and no DVT was seen in either of her legs. An echocardiogram was performed on December 25, 2020 and showed normal left ventricular chamber size and normal left ventricular wall thickness with no evidence of LVOT obstruction. No ventricular septal defects were seen. She had normal global left ventricular systolic function with a left ventricular ejec tion fraction by biplane Marquis's method at 59% with no LV segmental wall motion abnormalities. Left atrium and right atrium were normal in size. RV chamber size and wall thickness and systolic function was within normal limits. There was moderate elevation of her pulmonary artery systolic pressure at 45 mm. Aortic valve was tricuspid with mildly thickened leaflets with normal systolic excursion of the aortic valve with no stenosis and no aortic regurgitation. She had trace mitral regurgitation. She has trace of tricuspid regurgitation. She had no evidence for diastolic dysfunction. Her admission weight was 115.4 kg and she lost 4.2 kg with a final dry weight of 111.2 kg. Serial BMPs were monitored while she was being diuresed and her carbon dioxide level did climb to 43.8 due to a metabolic alkalosis precipitated by both diuresis as well as compensatory response to her chronic respiratory acidosis. Final BUN was 19 and final creatinine was 0.8. C-reactive protein at discharge was 0.9 and her proBNP had decreased down to 326. Serial troponins have been checked on admission were less than 0.05. Throughout her hospital stay she had no chest pain or pressure and her dyspnea improved as did her leg edema although she still has some chronic bilateral leg edema prior due to chronic venous insufficiency as well as due to her pulmonary hypertension. It was explained her that we cannot diurese away all the leg edema and she should be fitted for compression hose which can be arranged through her PCP. Pulmonary consultation was obtained with Dr. Annmarie Rojas, adjunct physics instructor, regarding the patient's COPD and sleep apnea and lung nodules. Please see Dr. Rojas's note for complete details. Patient was treated for community- acquired pneumonia with ceftriaxone and doxycycline which also treated her left leg cellulitis and her UTI. Serial CBCs were monitored but there is never any leukocytosis. CRP was minimally elevated 0.9. Procalcitonin level was less t hull 0.1. Sputum culture came back showing normal abel. Urine culture grew 2 different species of E. coli both which were exquisitely sensitive to ceftriaxone. Blood cultures came back no growth. Patient was discharged on December 30, 2020 after having an amatory pulse oximetry that demonstrated her oxygenation needs. At rest she required 2 L/min per nasal cannula to maintain her saturation above 88% and with ambulation she needed 3 L/min per nasal cannula. Respiratory care made referrals to [facility] [place] who set up for home oxygen. Patient was discharged in markedly improved condition on December 30, 2020. Discharge medications include Augmentin 875 mg p.o. twice daily for 5 more days and furosemide 20 mg daily as well as Combivent Respimat 1 puff inhaled 4 times a day and 40 mg daily for 5 more days. Patient was referred for follow-up PFTs to be done in 2 weeks as well as a follow-up chest x-ray in 2 weeks. Patient is to get a follow-up BMP in 1 week. Patient has a follow-up appoint with Dr. Rojas on February 07, 2021 at 1 PM. Patient is to follow-up with Julieth Luna at [facility]. Patient will be called by [facility] on Saturday. Patient was given the phone number to call in the event that she does not receive a follow-up phone call. Home Meds and New Rx's Prescriptions: New amoxicillin-pot clavulanate 875-125 mg tablet 1 ea PO BID AC Qty: 10 RF: 0 Combivent Respimat 20-100 mcg/actuation mist 1 puff inhalation QID Qty: 4 RF: 1 prednisone 20 mg tablet 40 mg PO DAILY 5 Days Qty: 10 RF: 0 furosemide [Lasix] 20 mg tablet 20 mg PO DAILY Qty: 30 RF: 0 No Action cetirizine 10 mg Tablet 10 mg PO DAILY RF: 0 ibuprofen 200 mg Tablet 400 mg PO Q6H PRNRF: 0 Discharge Instructions Instructions: Bacterial Pneumonia (GEN), Chronic Lung Disease and Infection Prevention (GEN), Energy Conservation Techniques (DC), Dyspnea Scale and Exercise (DC) Stand Alone Forms: Nursing Discharge Form Referrals: Julieth Luna [ NON-[facility] STAFF PHYSICIAN] - ([facility] should call you on Saturday to set follow up) Annmarie Galloway MD [ [facility] STAFF PHYSICIAN] - 02/07/21 1:00 pm Activity:: Activity as Tolerated Equipment/Supplies:: 2 to 3 LPM Diet:: Normal Diet Discharge Orders Other Ambulatory Orders: Basic Metabolic Panel (Routine) Timeframe: 1 Week Facility: [facility] - Location: Laboratory Outpatient Ordered By: Ander Whitt XR chest 2V PA & lateral (Routine) Timeframe: 2 Weeks Facility: [facility] - Location: DIAGNOSTIC IMAGING Ordered By: Ander Whitt PFT (Branch/DLCO/Volumes) (Outpt) (ONCE) Timeframe: 20210113 Facility: [facility] - Location: Respiratory Therapy Ordered By: Ander Whitt Discharge Data Discharge Date/Time-TO BE ENTERED AT DEPARTURE: 12/30/20 18:59 DS: Summary Time Spent with Patient providing and/or coordinating discharge services: Greater than 30 minutes Status at Discharge Functional status at discharge: uses cane/walker Overall status at discharge: patient is progressing back to baseline Mental Status: mental status grossly normal Speech and Movement: speech and movement normal Mood: congruent mood Affect: normal affect Exam Narrative Exam Narrative: Pleasant middle-age female who is sitting up at the bedside able to converse in complete paragraphs without dyspnea. She is wearing her oxygen at 2 L/min per nasal cannula. Lungs with fine bibasilar rales no rhonchi no wheezes Heart distant heart tones but regular without murmur rub or gallop Abdomen is obese soft nontender Lower extremities with 3+ edema but it is now softer not tense and the erythema in her left pretibial surface is gone away. She is just left with a chronic dependent rubor to her legs. Psych Mental Status: mental status grossly normal Speech and Movement: speech and movement normal Mood: congruent mood Affect: normal affect DS: Data Vitals/I&O Vitals and I&O: Vital Signs Temperature 36.1 C L 12/30/20 15:19 Temperature Source Tympanic 12/30/20 15:19 Pulse 75 12/30/20 15:19 Pulse Rhythm Regular 12/30/20 05:31 Pulse 84 12/25/20 23:31 Respiratory Rate 18 12/30/20 15:19 Respiratory Effort Non-Labored 12/30/20 05:31 Respiratory Depth Normal 12/30/20 05:31 Respiratory Pattern Normal 12/30/20 05:31 Blood Pressure 132/74 12/30/20 15:19 Blood Pressure Mean 89 12/25/20 23:30 Blood Pressure Position Sitting 12/25/20 18:50 Pulse Oximetry 91 L 12/30/20 15:19 Oxygen Delivery Method Nasal Cannula 12/30/20 15:19 Oxygen Flow Rate 2 12/30/20 15:19 Fraction of Inspired Oxygen (FIO2) 36 12/30/20 09:58 Pain Level 3 12/30/20 15:19 Intake & Output 12/29/20 12/30/20 12/30/20 23:59 11:59 23:59 Intake Total 585 / 585 680 / 680 Output Total 950 / 2800 1600 / 1600 Balance -365 / -2215 -1600 / -920 680 / -920 Weight 111.2 kg Intake: IV Oral 575 / 575 680 / 680 Output: Urine 950 / 2800 1600 / 1600 Other: Urine Color Straw Pale Urine Appearance Clear Cloudy Urine Odor None Voiding Methods Bedside Commode Bedside Commode Data Completed and Pending Labs on day of discharge: Labs from last 24 hours 12/30/20 12/28/20 06:05 12:15 Sodium 143 Potassium 4.1 Chloride 100 Carbon Dioxide 43.8 H Anion Gap -0.8 L BUN 19 H Creatinine 0.8 Estimated GFR/1.73 m2 >= 60.00 Glucose 98 Calcium 8.5 C-Reactive Protein 0.90 H NT-Pro-B Natriuret Pep 326 H M. pneumoniae Source SPUTUM M. pneumoniae (PCR) Negative Preliminary micro results at discharge 12/28/20 12:15 Sputum Culture - Preliminary Sputum Normal Abel 12/25/20 20:00 Blood Culture - Preliminary Blood NO GROWTH 96 HOURS 12/25/20 19:34 Blood Culture - Preliminary Blood NO GROWTH 96 HOURS COUNT INCLUDES THE [facility] Social History Smoking/Tobacco Use Status: Current every day Tobacco Type: cigarettes Smoking risk assessment performed?: Yes Alcohol Intake: current Alcohol Intake frequency: holidays/special occasions only Drug use: Never Substance use type: does not use Do you feel safe at home: Yes Do you feel safe in your relationship?: Yes
== END 2020-12-30 18:59 | disposition home or self-care (01) | DRG 193 ==
LOC: ER 22:48 → MS 23:48
PROVIDERS: Internal Medicine; Admitting Provider General Practice; Emergency Provider Student in an Organized Health Care Education/Training Program; PCP Nurse Practitioner; Visit Provider General Practice
DX: J18.9 Pneumonia, unspecified organism (principal); J96.21 Acute and chronic respiratory failure with hypoxia; J96.22 Acute and chronic respiratory failure with hypercapnia; J44.0 Chronic obstructive pulmonary disease with (acute) lower respiratory infection; N39.0 Urinary tract infection, site not specified; L03.116 Cellulitis of left lower limb; Z68.41 Body mass index [BMI] 40.0-44.9, adult; J44.1 Chronic obstructive pulmonary disease with (acute) exacerbation; I50.812 Chronic right heart failure; F17.210 Nicotine dependence, cigarettes, uncomplicated; Z20.822 Contact with and (suspected) exposure to COVID-19; R60.0 Localized edema; I27.20 Pulmonary hypertension, unspecified; R91.1 Solitary pulmonary nodule; E66.9 Obesity, unspecified
CPT/HCPCS: 36415; 71275; 80048; 80053; 82805; 84145; 85027; 87040; 87077; 87449; 87635; 93005; 94618; 94640; 96365; 96367; 96375; 97162; 97530; 99285; J1650; 71045; 81003; 81015; 83605; 83880; 84484; 85025; 85379; 85610; 85730; 86140; 87070; 87086; 87186; 87205; 87581; 87899; 93010; 93306; 93970; 94660; 99222; 99232; 99238; J0696; J1941; J2930; J3490; J7512; J7620

== ENCOUNTER 2021-01-06 01:58 | Outpatient (CLI) | payer MEDICARE, MEDICAID, SELFPAY ==
[2021-01-06 11:21] LABS: Anion Gap 5.9 mmol/L (3-11); BUN 12 mg/dL (7-18); CO2 38.1 mmol/L (21.0-32.0); CREATININE 0.9 mg/dL (0.55-1.02); Calcium 9.4 mg/dL (8.5-10.1); Chloride 100 mmol/L (98-107); Glucose 100 mg/dL (74-106); Potassium 4.8 mmol/L (3.5-5.1); Sodium 144 mmol/L (136-145)
== END 2021-01-06 01:59 | disposition home or self-care (01) ==
LOC: LBO 01:58
PROVIDERS: PCP Nurse Practitioner; Visit Provider Internal Medicine
DX: I50.9 Heart failure, unspecified (principal)
CPT/HCPCS: 36415; 80048

== ENCOUNTER 2021-01-13 01:45 | Outpatient (CLI) | payer MEDICARE, MEDICAID, SELFPAY ==
[2021-01-13] MEDS: Albuterol HFA 18 GM 200 PUFF INH IH (08:55)
[2021-01-13] MEDS: Inhaler, Assist Device 1 EACH MC (08:55)
--- NOTE | 2021-01-13 12:36 | W.PFT ---
Date of service: 01/13/21 Time of Service: 08:06 Pulmonary Function Test Result Requesting Provider Laverne Indications: COPD with recent exacerbation Interpretation Spirometry: There is a very severe airflow limitation. There is a low FVC. There is significant bronchodilator response. Lung Volumes: There is evidence of air trapping. Diffusion Capacity: The diffusion is reduced. Airway Pressure: Airways resistance is increased. Impression Very severe airflow limitation with a significant bronchodilator response and evidence of air trapping with a reduced diffusion. Low FVC is likely due to severe airflow limitation. Clinical Correlation therefore is recommended.
== END 2021-01-13 01:46 | disposition home or self-care (01) ==
PROVIDERS: Visit Provider Student in an Organized Health Care Education/Training Program
DX: J44.9 Chronic obstructive pulmonary disease, unspecified (principal)
CPT/HCPCS: 94060; 94726; 94729

== ENCOUNTER 2021-01-13 04:13 | Outpatient (CLI) | payer MEDICARE, MEDICAID, SELFPAY ==
--- NOTE | 2021-01-13 09:44 | DI.RAD_ITS ---
Exam(s) XR CHEST 2V PA LATERAL EXAM: XR CHEST 2V PA LATERAL CLINICAL HISTORY: follow up pneumonia TECHNIQUE: 2D digital imaging was performed. COMPARISON: CT CT CHEST PE CTA from 12/25/2020 CR,XR XR PORTABLE CHEST AP from 12/25/2020 FINDINGS: The heart is not enlarged. The lungs are clear and well expanded. Intrapulmonary nodules seen on CT examination December 25 are not clearly visualized radiographically and should be followed by CT. No pleural effusion seen. Mediastinal contours appear intact. IMPRESSION: Normal chest. Pulmonary nodules identified on CT are not clearly visualized and should be followed w ith repeat chest CT in 3 months. RADIATION DOSE DELIVERED: Total DLP
== END 2021-01-13 04:33 ==
PROVIDERS: Visit Provider Internal Medicine
DX: J18.9 Pneumonia, unspecified organism (principal)
CPT/HCPCS: 71046

== ENCOUNTER 2021-02-14 01:55 | Outpatient (CLI) | payer MEDICARE, MEDICAID, SELFPAY ==
--- NOTE | 2021-02-14 07:30 | DI.CT_ITS ---
Exam(s) CT CHEST WO EXAM: CT CHEST WO CLINICAL HISTORY: F/U MULTIPLE PULMONARY NODULES,R91.8. TECHNIQUE: Imaging protocol: Axial computed tomography images were obtained and coronal and sagittal reformatted images were created and reviewed. COMPARISON: CT CT CHEST PE CTA from 12/25/[address] CHEST PE CTA from 12/25/2020 FINDINGS: Tracheobronchial tree: Patent where visualized. Pulmonary parenchyma: No new focal consolidating infiltrates are seen. There is mild centrilobular e mphysema. There is a 1 x 1 cm noncalcified stable pulmonary nodule in the right lower lobe. There i s an unchanged 5 mm pleural based nodule in the right lower lobe. The nodular infiltrate in the righ t lower lobe persists. There is scarring and bronchiectasis again seen in the right middle lobe. Th ere is a stable 5 mm right middle lobe pulmonary nodule. The nodular infiltrate in the left lower lo be is resolved. There is a stable 5 mm pleural-based nodule in the left lower lobe laterally. No ne w pulmonary nodules are appreciated. Mediastinum and Naima: No dominant adenopathy or fluid collection. Thyroid gland: Unremarkable. Pleura: No effusion or pneumothorax. Heart: The heart is not dilated. Coronary artery calcification. No pericardial effusion. Aorta: Thoracic aorta non-dilated. Atherosclerosis. Upper abdomen: Cholelithiasis. Lymph nodes: Within normal limits. Soft tissues: Unremarkable. Bones:Within normal limits for the patient's age. IMPRESSION: Stable multiple pulmonary nodules. A 3 to six-month CT scan of the chest is recommended for follow-u p. RADIATION DOSE DELIVERED: 608.93mGy.cm Total DLP DATA REPOSITORY: All CT scans at this facility are submitted to the National Radiology Data Registry (NRDR) Dose Index Registry (DIR) with the [employer] (ACR). RADIATION OPTIMIZATION: All CT scans at this facility use at least one of these dose optimization te chniques: automated exposure control; mA and/or kV adjustment per patient size (includes targeted exa ms where dose is matched to clinical indication); or iterative reconstruction.
== END 2021-02-14 02:15 ==
PROVIDERS: PCP Nurse Practitioner Family; Visit Provider Student in an Organized Health Care Education/Training Program
DX: R91.8 Other nonspecific abnormal finding of lung field (principal)
CPT/HCPCS: 71250; 82805; 36600; 94762

== ENCOUNTER 2021-02-14 04:16 | Outpatient (CLI) | payer MEDICARE, MEDICAID, SELFPAY ==
[2021-02-14 13:40] LABS: BE 10 mmol/L (-2-3); HCO3 35 mmol/L (22-26); pCO2 58 mmHg (35-45); pH 7.39 (7.35-7.45); pO2 87 mmHg (80-105); sO2 97 % (95-98); tCO2 32 mmol/L (23-27)
[2021-02-14 13:46] LABS: FIO2L 2 L; Site Left Radial
== END 2021-02-14 04:17 | disposition home or self-care (01) ==
PROVIDERS: PCP Nurse Practitioner Family; Visit Provider Student in an Organized Health Care Education/Training Program
DX: J96.91 Respiratory failure, unspecified with hypoxia (principal); J96.92 Respiratory failure, unspecified with hypercapnia
CPT/HCPCS: 82805; 36600; 94762

== ENCOUNTER 2021-07-17 11:33 | Emergency (ER) | payer MEDICARE, MEDICAID, SELFPAY ==
[2021-07-17 11:55] VITALS: BP 144/66; PULSE 88; RESP 18; TEMP 37; O2SAT 97
--- NOTE | 2021-07-17 13:00 | DI.RAD_ITS ---
Exam(s) XR PORTABLE CHEST AP EXAM: XR PORTABLE CHEST AP CLINICAL HISTORY: cough TECHNIQUE: 2D digital imaging was performed. COMPARISON: CR XR CHEST 2V PA LATERAL from 01/13/[address] CHEST WO from 02/14/2021 FINDINGS: Exam is mildly under penetrated at the lung bases secondary to patient body habitus. The heart size is unchanged. No infiltrate, effusion, pulmonary edema or pneumothorax is seen.. IMPRESSION: No acute pulmonary findings. DATA REPOSITORY: RADIATION DOSE DELIVERED:
--- NOTE | 2021-07-17 13:10 | ED.GENADUL_ITS ---
Discharge Plan Disposition Patient Disposition: HOME Condition: Stable Discharge Details Clinical Impression: Sinusitis Primary Care Provider: Julieth Luna ED Provider: Cora Nelson Home Meds and New Rx's Prescriptions: New amoxicillin-pot clavulanate 875-125 mg tablet 1 tab PO BID Qty: 14 0RF Continued (DME) pulse oximeter See Rx Instructions .Route .MEDSUPPLY Qty: 1 0RF Rx Instructions: As directed (DME) Oxygen Tank See Rx Instructions .ROUTE 0RF Label Comments: Uses 2Lpm only Rx Instructions: 2Lpm at rest, 3Lpm with activity cetirizine 10 mg Tablet 10 mg PO DAILY 0RF ibuprofen 200 mg Tablet 400 mg PO Q6H PRN0RF Breztri Aerosphere 160-9-4.8 mcg/actuation HFA aerosol inhaler 2 inh INHALATION BID 0RF Discharge Instructions Instructions: Sinusitis (ED) Additional Instructions: Your x-ray is unchanged today. I do not see any evidence of acute pneumonia. However, I am concerned that you have a sinus infection would like to treat with Augmentin. Please encourage hydration. You may use Tylenol as needed to help with discomfort. Please take the antibiotic as prescribed, even if symptoms improve please take the entire course. Please keep your upcoming appointment with your log stacker operator for reevaluation. If you develop any new or worsening symptoms please seek care urgently once again. Referrals: Julieth Luna [Primary Care Provider] - Annmarie Galloway MD [ [facility] STAFF PHYSICIAN] - Discharge Data Discharge Date/Time-TO BE ENTERED AT DEPARTURE: 07/17/21 14:30 Medical Decision Making Patient pleasant 66-year-old female presented with chief complaint sinus pressure. Patient reports that she was Covid positive about 3 weeks ago. Overall, COVID symptoms have improved although sinus pressure present in the frontal and maxillary sinuses have been increasing. Patient is chronically on oxygen typically using 2 L nasal cannula, no change in this recently. Past medical history is pertinent for COPD, pulmonary hypertension, CHF. States she has been trying to bring up green or yellow sputum with some bloody nose as well as coughing. No chest pain, no increase shortness of breath. Report acute on chronic cough which she believes is associated with nasal source. Has been noticing postnasal drip. On exam, patient appears nontoxic. No evidence of respiratory distress. She is 98% on time at bedside on 2 L nasal cannula which is baseline for the patient. Chart reviewed in the right upper lobe along but otherwise lung sounds are clear. Patient history, will obtain a 1 view chest film. However, she is quite tender with percussion over the frontal and maxillary sinuses I am concerned for potential sinusitis particularly given the progressive increase in discomfort over the past 3 weeks. Plan to treat the patient with antibiotics, and pseudoephedrine Augmentin. She reports that she has upcoming appointment with her log stacker operator and will be sufficient. Return precautions were discussed. All of her questions and concerns were addressed and she is agreement this plan. XR reviewed by radiologist: FINDINGS: Exam is mildly under penetrated at the lung bases secondary to patient body habitus.? The heart size is unchanged.? No infiltrate, effusion, pulmonary edema or pneumothorax is seen.. IMPRESSION: No acute pulmonary findings. Discussed findigns with the patient. Will treat for sinusitis with Augmentin. concerned that the PND and cough is associated with the sinusitis. Encouraged hydration. discussed supportive measures. She has upcoming appointment with pulmonology. Return precautions discussed. All of her questions and concerns were addressed, she is in agreement with this plan. [facility] General Date/Time Provider Initiated Documentation: 07/17/21 11:40 . History of Present Illness 66 year old F presents to the emergency department with the chief complaint of sinus pain, green/yellow sputum production, described as moderate, with intensity rated at 6. Quality is described as aching, and is localized to the face. Patient reports no radiation. Patient started experiencing this week(s) and it has been constant. improves with No relieving factors improve symptom(s), No exacerbating factors reported . Patient notes cough (feels like she is having cough associated with postnasal drip); denies chest pain, diaphoresis, fever/chills, headaches, loss of appetite, nausea/vomiting, rash and shortness of breath (chronic O2 requirement, no acute change in O2 demand or SOB). Patient did receive the following treatments prior to arrival, none Related Data Home Medications Medication Instructions Recorded Confirmed cetirizine 10 mg tablet 10 mg PO DAILY 12/25/20 07/17/21 ibuprofen 200 mg tablet 400 mg PO Q6H PRN 12/25/20 07/17/21 pulse oximeter #1 ea 02/07/21 05/08/21 Oxygen 07/11/21 amoxicillin 875 mg-potassium 1 tab PO BID #14 tab 07/17/21 clavulanate 125 mg tablet budesonide 160 mcg-glycopyr 9 2 inh INHALATION BID 07/17/21 07/17/21 mcg-formot 4.8 mcg/actuation HFA inhaler (Breztri Aerosphere) Previous Rx's Medication Instructions Recorded pulse oximeter #1 ea 02/07/21 amoxicillin 875 mg-potassium 1 tab PO BID #14 tab 07/17/21 clavulanate 125 mg tablet Allergies Allergy/AdvReac Type Severity Reaction Status Date / Time No Known Allergies Allergy Unverified 07/17/21 12:00 General Stated Complaint: RespSymp SUMAYA: 4 Review of Systems Constitutional Constitutional: Reports as per HPI and Denies headache(s) Eyes Eyes: Reports as per HPI, Denies eye discharge and Denies irritation ENT Ears, Nose, Mouth, and Throat: Reports as per HPI and Denies headache(s) Cardiovascular Cardiovascular: Reports as per HPI, Denies chest pain and Denies dyspnea Respiratory Respiratory: Reports as per HPI and Denies dyspnea Gastrointestinal Gastrointestinal: Reports as per HPI, Denies abdominal pain, Denies change in bowel habits, Denies nausea and Denies vomiting Integumentary/Breasts Skin/Breast: Reports as per HPI and Denies rash Neurologic Neurologic: Reports as per HPI and Denies headache(s) PFSH All Active Problems (Updated 07/17/21 @ 13:15 by SONDRA Wyatt) Sinusitis (Acute) COPD (chronic obstructive pulmonary disease) (Chronic) Pulmonary hypertension (Chronic) SOB (shortness of breath) (Acute) Pneumonia (Acute) Acute dyspnea (Acute) Pulmonary nodule (Acute) Social History Smoking/Tobacco Use Status: Current every day Tobacco Type: cigarettes Smoking risk assessment performed?: Yes Alcohol Intake: current Alcohol Intake frequency: holidays/special occasions only Drug use: Never Substance use type: does not use Do you feel safe at home: Yes Do you feel safe in your relationship?: Yes Exam Const General: cooperative, comfortable, no acute distress, well developed, well groomed and ill appearing chronically Nutritional Appearance: well nourished and overweight Orientation: alert and awake HENMT Head: normal to inspection, normocephalic and atraumatic Ears: hearing grossly normal bilaterally, external ears normal and TM's normal bilaterally General nose exam: external nose normal and nares normal Face and sinus: normal facial exam, face symmetric, no crepitus, no ecchymosis, no erythema, no edema, sinus tenderness frontal and maxillary and dry mucous membranes Mouth: oral mucosae normal, lip normal, tongue normal, oropharynx normal and moist mucous membranes Teeth and gingiva: dentition normal Throat: posterior oropharynx normal, tonsils normal and uvula midline Eyes General: appearance normal, both eyes and all related structures Neck Neck: normal visual inspection, full ROM, no lymphadenopathy and no meningeal signs Resp Effort & Inspection: normal respiratory effort, able to speak in complete sentences and no respiratory distress Auscultation: no rales, no rhonchi and wheezes expiratory wheezes and right upper Cardio Rate: regular rate Rhythm: regular rhythm Heart Sounds: S1 normal and S2 normal Skin General skin exam: no rashes or lesions noted Neuro General: patient alert and patient awake Cognition: normal cognition Speech: speech normal Gait: normal gait Psych Appearance: grossly normal and well kempt Mental Status: mental status grossly normal Speech and Movement: speech and movement normal Course Vital Signs Vital signs: Vital Signs Temperature 37.0 C 07/17/21 11:55 Pulse 88 07/17/21 11:55 Respiratory Rate 18 07/17/21 11:55 Blood Pressure 144/66 H 07/17/21 11:55 Pulse Oximetry 97 07/17/21 11:55 Temperature 37.0 C 07/17/21 11:55 Temperature Source Temporal Artery Scan 07/17/21 11:55 Pulse 88 07/17/21 11:55 Respiratory Rate 18 07/17/21 11:55 Respiratory Effort Non-Labored 07/17/21 11:58 Blood Pressure 144/66 H 07/17/21 11:55 Blood Pressure Position Sitting 07/17/21 11:55 Pulse Oximetry 97 07/17/21 11:55 Oxygen Delivery Method Nasal Cannula 07/17/21 11:55 Oxygen Flow Rate 2 07/17/21 11:55 Pain Level 6 07/17/21 11:55 PAWSS Have you Been Recently Intoxicated or Drunk Within the Last 30 days?: No Have you Ever Experienced Previous Episodes of Alcohol Withdrawal?: No Have you ever Experienced Withdrawal Seizures?: No Have you ever Experienced Delirium Tremens(DT)s?: No Have you ever undergone Alcohol Rehabilitation Treatment (i.e, inpt ot outpatient treatment programs)?: No Have you ever Experienced Blackouts?: No Have you ever Combined Alcohol with other Downers within the last 90 days?: No Have you ever Combined Alcohol with any other Substance of Abuse during the last 90 days?: No Positive Blood Alcohol level on Presentation? [PCS.BAL]: No Evidence of Increased Autonomic Activity (i.e. HR>120, tremor, sweating, agitation, nausea)?: No Result: 0
== END 2021-07-17 14:30 | disposition home or self-care (01) ==
PROVIDERS: Emergency Provider Physician Assistant; PCP Nurse Practitioner Family
DX: J01.90 Acute sinusitis, unspecified (principal); Z86.16 Personal history of COVID-19; R05.1 Acute cough
CPT/HCPCS: 99283; 71045

== ENCOUNTER 2021-08-21 01:15 | Outpatient (CLI) | payer MEDICARE, MEDICAID, SELFPAY ==
--- NOTE | 2021-08-21 07:45 | DI.CT_ITS ---
Exam(s) CT CHEST WO EXAM: CT CHEST WO CLINICAL HISTORY: f/u last scan to assess nodule stability,pulmonary nodules,r91.8 TECHNIQUE: Imaging Protocol: Axial computed tomography images with coronal and sagittal reformatted images were created and reviewed CONTRAST MATERIAL: Intravenous: Omnipaque 350 Contrast volume:structured data in ml. COMPARISON: CT CT CHEST WO from 02/14/2021 CR XR PORTABLE CHEST AP from 07/17/2021 FINDINGS: Tracheobronchial tree: No bronchiectasis or mucous plugging. Mediastinum and Naima: No dominant adenopathy or fluid collection. Pulmonary parenchyma: No consolidation. Stable 10 millimeter nodule right lower lobe. Additional ri ght middle lobe nodules, 5 millimeters or less appear stable. Stable scarring right middle lobe. St able 6 millimeter peripheral nodule left lower lobe. No new nodules. Pleura: No effusion or pneumothorax. Heart: The heart is mildly dilated. Moderate to severe coronary artery calcifications are seen. Aorta: Thoracic aorta non-dilated. Upper abdomen: Cholelithiasis.. Lymph nodes: Within normal limits. Bones: Stable degenerative changes. Stable mild T8 compression fracture. Soft tissues: Unremarkable. IMPRESSION: Stable pulmonary nodules, largest at the right lower lobe measuring 10 millimeters. Follow-up exam c ould be considered in 6 months. RADIATION DOSE DELIVERED: 770.92mGy.cm Total DLP DATA REPOSITORY: All CT scans at this facility are submitted to the National Radiology Data Registry (NRDR) Dose Index Registry (DIR) with the [employer] ([employer]). RADIATION OPTIMIZATION: All CT scans at this facility use at least one of these dose optimization te chniques: automated exposure control; mA and/or kV adjustment per patient size (includes targeted exa ms where dose is matched to clinical indication); or iterative reconstruction.
== END 2021-08-21 01:35 ==
PROVIDERS: PCP Nurse Practitioner Family; Visit Provider Student in an Organized Health Care Education/Training Program
DX: R91.8 Other nonspecific abnormal finding of lung field (principal)
CPT/HCPCS: 71250

== ENCOUNTER → 2022-02-26 01:45 | Outpatient (CLI) | payer MEDICARE, MEDICAID, SELFPAY ==
--- NOTE | 2022-02-26 06:45 | DI.CT_ITS ---
Exam(s) CT CHEST WO EXAM: CT CHEST WO CLINICAL HISTORY: f/u pulmonary nodule R91.8 ABNL FINDINGS. TECHNIQUE: Imaging protocol: Axial computed tomography images were obtained and coronal and sagittal reformatted images were created and reviewed. COMPARISON: CT CT CHEST WO from 08/21/2021 FINDINGS: Tracheobronchial tree: Patent where visualized. Pulmonary parenchyma: No consolidation or dominant measurable mass. Mild centrilobular emphysematous changes are present. There is a stable 1 cm nodule in the right lower lobe. There is a new 6 mm nod ule in the right middle lobe. There is a stable 4 mm nodule in the medial aspect of the right middle lobe. There are areas of scarring or atelectasis in the right middle lobe and left lingula. Mediastinum and Naima: No dominant adenopathy or fluid collection. The esophagus is unremarkable. Thyroid gland: Unremarkable. Pleura: No effusion or pneumothorax. Heart: The heart is not dilated. Coronary artery calcifications are present. No pericardial effusion . Aorta: Thoracic aorta non-dilated. Mild atherosclerosis is present. Upper abdomen: Gallstones are present. Lymph nodes: Within normal limits. Soft tissues: Unremarkable. Bones:Within normal limits for the patient's age. IMPRESSION: 1. Stable pulmonary nodules. New nodule in the right middle lobe measuring 6 mm. A follow-up examin ation in 6 months is recommended for re-evaluation. 2. Cholelithiasis. RADIATION DOSE DELIVERED: 726.61mGy.cm Total DLP 726.61mGy.cm Total DLP DATA REPOSITORY: All CT scans at this facility are submitted to the National Radiology Data Registry (NRDR) Dose Index Registry (DIR) with the [employer] ([employer]). RADIATION OPTIMIZATION: All CT scans at this facility use at least one of these dose optimization te chniques: automated exposure control; mA and/or kV adjustment per patient size (includes targeted exa ms where dose is matched to clinical indication); or iterative reconstruction.
== END ==
PROVIDERS: PCP Nurse Practitioner Family; Visit Provider Student in an Organized Health Care Education/Training Program
DX: R91.8 Other nonspecific abnormal finding of lung field (principal); K80.20 Calculus of gallbladder without cholecystitis without obstruction
CPT/HCPCS: 71250

== ENCOUNTER 2022-03-06 16:46 | Outpatient (REF) | payer MEDICARE, MEDICAID, SELFPAY ==
[2022-03-06 13:50] LABS: BE (Venous) 7 mmol/L (-2-3); HCO3 (Venous) 32 mmol/L (23-28); O2 Sat (Venous) 99 %; TCO2 (Venous) 28 mmol/L (24-29); pCO2 (Venous) 50 mmHg (41-51); pH (Venous) 7.41 (7.31-7.41); pO2 (Venous) 223 mmHg
== END 2022-03-06 16:47 | disposition home or self-care (01) ==
LOC: LBN 16:46
PROVIDERS: PCP Nurse Practitioner Family; Visit Provider Student in an Organized Health Care Education/Training Program
DX: J96.21 Acute and chronic respiratory failure with hypoxia (principal); J96.22 Acute and chronic respiratory failure with hypercapnia
CPT/HCPCS: 82805

== ENCOUNTER 2022-08-20 00:34 | Outpatient (CLI) | payer MEDICARE, MEDICAID, SELFPAY ==
--- NOTE | 2022-08-20 08:00 | DI.CT_ITS ---
Exam(s) CT CHEST WO EXAM: CT CHEST WO CLINICAL HISTORY: f/u new RML 6mm nodule,pulmonary nodules, r91.8. TECHNIQUE: Imaging protocol: Axial computed tomography images were obtained and coronal and sagittal reformatted images were created and reviewed. COMPARISON: CT CT CHEST WO from 02/26/2022 FINDINGS: Tracheobronchial tree: Patent where visualized. Pulmonary parenchyma: Mild centrilobular emphysematous changes are present. There is a stable 3 mm n odule in the lateral aspect of the left upper lobe. The 4 mm nodule in the inferior aspect of the ri ght middle lobe is stable. The 6 mm nodule in the lateral aspect of the right middle lobe is stable. The 1 cm nodule in the right lower lobe is stable. There is scar atelectasis in the lingula and ri ght middle lobe. There is a new 6 mm peripheral area of nodularity in the lateral aspect of the righ t lower lobe. There are no focal consolidating infiltrates. Mediastinum and Naima: No dominant adenopathy or fluid collection. The esophagus is unremarkable. Thyroid gland: Unremarkable. Pleura: No effusion or pneumothorax. Heart: The heart is not dilated. Coronary artery calcification and/or stents are noted. No pericardi al effusion. Aorta: Thoracic aorta non-dilated. Atherosclerosis. Upper abdomen: Cholelithiasis. Lymph nodes: Within normal limits. Soft tissues: Unremarkable. Bones:Within normal limits for the patient's age. IMPRESSION: 1. Multiple pulmonary nodules. New 6 mm peripheral area of nodularity in the right lower lobe. 2. Mild centrilobular emphysema. 3. Cholelithiasis. RADIATION DOSE DELIVERED: 760.79mGy.cm Total DLP 760.79mGy.cm Total DLP DATA REPOSITORY: All CT scans at this facility are submitted to the National Radiology Data Registry (NRDR) Dose Index Registry (DIR) with the [employer] (ACR). RADIATION OPTIMIZATION: All CT scans at this facility use at least one of these dose optimization te chniques: automated exposure control; mA and/or kV adjustment per patient size (includes targeted exa ms where dose is matched to clinical indication); or iterative reconstruction.
== END 2022-08-20 00:54 ==
LOC: DI 00:34
PROVIDERS: PCP Nurse Practitioner Family; Visit Provider Student in an Organized Health Care Education/Training Program
DX: R91.8 Other nonspecific abnormal finding of lung field (principal); K80.20 Calculus of gallbladder without cholecystitis without obstruction; J43.2 Centrilobular emphysema; R91.1 Solitary pulmonary nodule
CPT/HCPCS: 71250

== ENCOUNTER → 2023-03-15 00:48 | Outpatient (CLI) | payer MEDICARE, MEDICAID, SELFPAY ==
--- NOTE | 2023-03-15 13:05 | DI.CT_ITS ---
Exam(s) CT CHEST WO EXAM: CT CHEST WO CLINICAL HISTORY: f/u waxing and waning nodules,r91.8 TECHNIQUE: Imaging Protocol: Axial computed tomography images with coronal and sagittal reformatted images were created and reviewed CONTRAST MATERIAL: Intravenous: Omnipaque 350 Contrast volume:structured data ml. COMPARISON: CT CT CHEST WO from 08/20/2022 FINDINGS: Pulmonary parenchyma: There is now atelectasis in the inferior right right middle lobe and lingula. From this obscures visualization of previously noted right middle lobe nodules.. No dominant measura ble mass. Stable 3 millimeter nodule posterolateral left upper lobe. 6 millimeter nodule at the ri ght lateral lower lobe near the base is not seen. The 10 millimeter nodule in the right lower lobe i s unchanged. Tracheobronchial tree: No bronchiectasis or mucous plugging. Mediastinum and Naima: No dominant adenopathy or fluid collection. Pleura: No effusion. No pneumothorax. Heart: The heart is not dilated. coronary artery calcifications are seen. Aorta: Thoracic aorta non-dilated. atherosclerotic changes. Upper abdomen: Cholelithiasis Bones: Degenerative changes in the spine. Stable mild compression of the superior endplate of T8 with Schmorl's node. Soft tissues: Unremarkable. IMPRESSION: Stable pulmonary nodules. There is no increasing atelectasis in the right middle lobe and lingula. The previously noted right middle lobe nodules are obscured. RADIATION DOSE DELIVERED: Total DLP DATA REPOSITORY: All CT scans at this facility are submitted to the National Radiology Data Registry (NRDR) Dose Index Registry (DIR) with the [employer] (A[employer]). RADIATION OPTIMIZATION: All CT scans at this facility use at least one of these dose optimization te chniques: automated exposure control; mA and/or kV adjustment per patient size (includes targeted exa ms where dose is matched to clinical indication); or iterative reconstruction.
== END ==
PROVIDERS: PCP Nurse Practitioner Family; Visit Provider Student in an Organized Health Care Education/Training Program
DX: R91.8 Other nonspecific abnormal finding of lung field (principal)
CPT/HCPCS: 71250

== ENCOUNTER → 2023-03-25 12:45 | Outpatient (BNVA) | payer MEDICARE, MEDICAID, SELFPAY | PROVIDERS: PCP Nurse Practitioner Family; Referring Provider Nurse Practitioner Family; Visit Provider Physician Assistant Surgical | DX: I27.20 Pulmonary hypertension, unspecified (principal); J43.2 Centrilobular emphysema; Z79.899 Other long term (current) drug therapy; R91.1 Solitary pulmonary nodule; J96.21 Acute and chronic respiratory failure with hypoxia; J96.22 Acute and chronic respiratory failure with hypercapnia; R73.9 Hyperglycemia, unspecified; Z86.39 Personal history of other endocrine, nutritional and metabolic disease; B35.1 Tinea unguium; Z87.891 Personal history of nicotine dependence | CPT/HCPCS: 36415; 99214 ==

== ENCOUNTER 2023-03-25 14:37 | Outpatient (REF) | payer MEDICARE, MEDICAID, SELFPAY ==
[2023-03-25 14:54] LABS: Abs Immature Grans 0.08 10^3/uL (0.0-0.06); Absolute Basophil Count 0.05 10^3/uL (0.0-0.2); Absolute Eosinophil Count 0.07 10^3/uL (0.0-0.7); Absolute Monocyte Count 0.49 10^3/uL (0.1-0.8); Absolute Neutrophil Count 6.27 10^3/uL (1.2-6.7); Basophils % 0.6; Eosinophils % 0.8; HCT 41.5 % (36.0-46.0); Immature Grans % 0.9; Lymphocytes % 20.5; MCH 27.3 pg (27.0-33.0); MCHC 31.3 % (32.0-36.0); MCV 87 fL (80-95); MPV 10.2 fL (8.0-11.0); Monocytes % 5.6; Neutrophils % 71.6; Platelet Count 146 10^3/uL (130-400); RBC 4.77 10^6/uL (3.93-5.22); RDW 14.7 % (11.7-14.6); RDW-SD 47.2 fL; WBC 8.76 10^3/uL (4.4-10.8)
[2023-03-25 15:05] LABS: ALT 16 U/L (14-59); AST 19 U/L (15-37); Albumin 3.6 g/dL (3.4-5.0); Alkaline Phosphatase 120 U/L (46-116); Anion Gap 4.5 mmol/L (3-11); BUN 9 mg/dL (7-18); Bilirubin, Total 0.5 mg/dL (0.2-1.0); CO2 35.5 mmol/L (21.0-32.0); CREATININE 0.7 mg/dL (0.55-1.02); Calcium 9.6 mg/dL (8.5-10.1); Chloride 101 mmol/L (98-107); Estimated GFR 94.15 (mL/min/1.73m2); Glucose 98 mg/dL (74-106); Potassium 4.3 mmol/L (3.5-5.1); Sodium 141 mmol/L (136-145); Total Protein 8.5 g/dL (6.4-8.2)
[2023-03-25 15:40] LABS: Hemoglobin A1C 5.1 % (<5.7)
== END 2023-03-25 14:38 | disposition home or self-care (01) ==
LOC: LBN 14:37
PROVIDERS: PCP Nurse Practitioner Family; Visit Provider Physician Assistant Surgical
DX: R73.9 Hyperglycemia, unspecified (principal); I50.9 Heart failure, unspecified; I27.20 Pulmonary hypertension, unspecified; J44.9 Chronic obstructive pulmonary disease, unspecified
CPT/HCPCS: 80053; 83036; 85025

== ENCOUNTER 2023-07-25 12:57 | Emergency (ER) | payer MEDICARE, MEDICAID, SELFPAY ==
[2023-07-25 13:04] VITALS: BP 159/86; PULSE 89; RESP 18; TEMP 36.8; O2SAT 95
--- NOTE | 2023-07-25 14:00 | DI.RAD_ITS ---
Exam(s) XR PORTABLE CHEST AP EXAM: XR PORTABLE CHEST AP CLINICAL HISTORY: sob, edema, chf. TECHNIQUE: 2D digital imaging was performed. COMPARISON: CR XR PORTABLE CHEST AP from 07/17/[address] CHEST WO from 03/15/2023 FINDINGS: Single AP portable view. Heart size is upper normal. The mediastinum is not widened. Left lung appears clear. However, there appears to be some mild possible infiltrate in the lower rig ht lung. This difficult to visualize accurately because of prominent overlying breast tissue. Never theless, I suspect that there is some infiltrate here in the lower right lung, particularly given the appearance of the right middle lobe on the chest CT scan of 03/15/2023. No pleural effusions no pulmonary edema. IMPRESSION: Possible subtle right lung infiltrate as described above. If clinically indicated CT scan can be per formed to prior to the abnormal findings on the CT scan of 03/15/2023. DATA REPOSITORY: RADIATION DOSE DELIVERED:
[2023-07-25 14:15] LABS: Abs Immature Grans 0.06 10^3/uL (0.0-0.06); Absolute Basophil Count 0.04 10^3/uL (0.0-0.2); Absolute Eosinophil Count 0.04 10^3/uL (0.0-0.7); Absolute Lymphocyte Count 1.33 10^3/uL (1.2-3.4); Absolute Monocyte Count 0.39 10^3/uL (0.1-0.8); Absolute Neutrophil Count 5.17 10^3/uL (1.2-6.7); Basophils % 0.6; Eosinophils % 0.6; HCT 37.5 % (36.0-46.0); HGB 11.8 g/dL (11.2-15.7); Immature Grans % 0.9; Lymphocytes % 18.9; MCHC 31.5 % (32.0-36.0); MCV 89 fL (80-95); MPV 9.5 fL (8.0-11.0); Monocytes % 5.5; Neutrophils % 73.5; Platelet Count 146 10^3/uL (130-400); RBC 4.22 10^6/uL (3.93-5.22); RDW 14.9 % (11.7-14.6); RDW-SD 48.9 fL; WBC 7.03 10^3/uL (4.4-10.8)
[2023-07-25 14:16] LABS: ESR 50 mm/hr (0-30)
[2023-07-25] MEDS: Furosemide 40 MG/4 ML VIAL IVP (14:19)
[2023-07-25 14:42] LABS: ALT 21 U/L (14-59); AST 18 U/L (15-37); Albumin 3.4 g/dL (3.4-5.0); Alkaline Phosphatase 114 U/L (46-116); BUN 11 mg/dL (7-18); Bilirubin, Total 0.5 mg/dL (0.2-1.0); C-Reactive Protein 6.07 mg/dL (<or=0.5); CREATININE 0.7 mg/dL (0.55-1.02); Chloride 102 mmol/L (98-107); Estimated GFR 93.56 (mL/min/1.73m2); Glucose 89 mg/dL (74-106); NT-proBNP 386 pg/mL (<300); Potassium 3.7 mmol/L (3.5-5.1); Sodium 144 mmol/L (136-145)
[2023-07-25 14:53] LABS: Procalcitonin < 0.1 ng/mL
--- NOTE | 2023-07-25 15:40 | W.ED.GENAD ---
Discharge Plan Disposition Patient Disposition: Home Condition: Good Discharge Details Clinical Impression: Bilateral cellulitis of lower leg, Edema, peripheral Primary Care Provider: Julieth Luna ED Provider: Michele Rizzo Home Meds and New Rx's Prescriptions: New cephalexin 500 mg capsule 500 mg PO QID 7 Days Qty: 28 0RF No Action (DME) pulse oximeter See Rx Instructions .Route .MEDSUPPLY Qty: 1 0RF Rx Instructions: As directed Combivent Respimat 20-100 mcg/actuation mist 1 puff inhalation Q6H PRN Qty: 4 12RF furosemide [Lasix] 20 mg tablet 20 mg PO DAILY Qty: 30 6RF (DME) Oxygen Tank See Rx Instructions .Route Patient Comments: Uses 2Lpm only Rx Instructions: 2Lpm at rest, 3Lpm with activity Christianoi Aerosphere 160-9-4.8 mcg/actuation HFA aerosol inhaler See Rx Instructions .ROUTE .COMPLEX Qty: 10.7 9RF Dose Instruction: INHALE TWO PUFFS BY MOUTH TWICE A DAY Rx Instructions: INHALE TWO PUFFS BY MOUTH TWICE A DAY ibuprofen 200 mg Tablet 400 mg PO Q6H PRN cetirizine 10 mg tablet 10 mg PO DAILY PRN Discharge Instructions Instructions: Cellulitis (ED), Low-Sodium Diet (ED), Edema (ED) Additional Instructions: At this time you do have evidence of peripheral edema. This is secondary to continued increase fluids in your lower extremities. Please keep them elevated at all times. Keep them wrapped tightly. We have placed a referral with home health, they will be able to begin starting to help you once you have a primary care provider. Our porter sample case are trying to establish you prompt primary care follow-up. Unfortunately you also have evidence of a mild bacterial infection on top of the edema. Please take the Keflex as directed to prevent any worsening of the infection. Please avoid any salt in your diet to help limit the swelling. Please do your best to Wrap your legs every day tightly to help get the swelling down. Home health will help take this over once that is able to be established. I sent the prescription for the antibiotic to your pharmacy on file as well as the water pill Lasix. Please take these as directed. Please follow-up closely with your primary care provider in the next 7 days. They will contact you for an appointment time. If you notice any worsening of your symptoms, or any new symptoms such as vomiting, diarrhea, fever, chills, shortness of breath, chest pain, numbness, weakness, or fainting , please return immediately to the emergency department for reevaluation. Please follow up with your primary care provider as soon as possible for reassessment and reevaluation. As always, it was a pleasure participating in your medical care today. Referrals: Julieth Luna [Primary Care Provider] - Discharge Data Discharge Date/Time-TO BE ENTERED AT DEPARTURE: 07/25/23 17:03 HPI General Date/Time Provider Initiated Documentation: 07/25/23 14:02. HPI Narrative: 68-year-old female past medical history of COPD, obesity, peripheral edema, presents today for evaluation of edema of the lower extremities. Patient states that she normally takes Lasix, but has not for the last week because I do not like to get up and go pee a lot throughout the day. In addition to this she has noticed that she has had weeping from her legs, as well as redness over the last 2 to 3 days. She does eat salty foods and she admits to this. She denies any significant shortness of breath. She denies any fever or chills. No other complaints at this time. She recently lost her primary care provider, and has not been able to get a new one Set up yet. No other complaints at this time. Related Data Home Medications Medication Instructions Recorded Confirmed ibuprofen 200 mg tablet 400 mg PO Q6H PRN 12/25/20 07/25/23 pulse oximeter #1 ea 02/07/21 07/25/23 Oxygen 07/11/21 07/25/23 ipratropium 20 mcg-albuterol 100 1 puff inhalation Q6H PRN #4 grams 11/06/21 07/25/23 mcg/actuation mist for inhalation (Combivent Respimat) cetirizine 10 mg tablet 10 mg PO DAILY PRN 09/04/22 07/25/23 budesonide 160 mcg-glycopyr 9 See Rx Instructions .Route 03/15/23 07/25/23 mcg-formot 4.8 mcg/actuation HFA .COMPLEX #10.7 grams inhaler (Breztri Aerosphere) furosemide 20 mg tablet (Lasix) 20 mg PO DAILY #30 tabs 03/25/23 07/25/23 cephalexin 500 mg capsule 500 mg PO QID 7 days #28 caps 07/25/23 Previous Rx's Medication Instructions Recorded pulse oximeter #1 ea 02/07/21 ipratropium 20 mcg-albuterol 100 1 puff inhalation Q6H PRN #4 grams 11/06/21 mcg/actuation mist for inhalation (Combivent Respimat) budesonide 160 mcg-glycopyr 9 See Rx Instructions .Route 03/15/23 mcg-formot 4.8 mcg/actuation HFA .COMPLEX #10.7 grams inhaler (Breztri Aerosphere) furosemide 20 mg tablet (Lasix) 20 mg PO DAILY #30 tabs 03/25/23 cephalexin 500 mg capsule 500 mg PO QID 7 days #28 caps 07/25/23 Allergies Allergy/AdvReac Type Severity Reaction Status Date / Time No Known Allergies Allergy Unverified 07/25/23 13:03 General Stated Complaint: Cellulitis SUMAYA: 3 Review of Systems All systems reviewed & are unremarkable except as noted in HPI and below Exam Narrative Exam Narrative: 1.Const: Well-nourished, Well-developed, appearing stated age 2.Eyes: PERRL, no conjunctival injection, and symmetrical lids. 3.ENT: Atraumatic external nose and ears. Moist MM. Neck: Symmetric, trachea midline, No thyromegaly. 4.CVS: +S1/S2, No murmurs or gallops. Peripheral pulses 2+ and equal in all extremities. Brisk capillary refill in all extremities. 5.RESP: Unlabored respiratory effort. Clear to auscultation bilaterally. No wheezes rales or rhonchi. 6.GI: Soft, Nontender/Nondistended, No hepatosplenomegaly. No guarding or rebound. 7.MSK: Normocephalic/Atraumatic, Extremities w/o deformity or ttp No cyanosis or clubbing, Normal movement of all extremities patient demonstrates +3 pitting edema of the lower extremities bilaterally, chronic weeping in the posterior components of her legs. Mild redness anteriorly., 8.Skin: Warm, Dry. No rashes or lesions. 9.Neuro: regulatory lead II-XII grossly intact. Sensation grossly intact, no focal neurologic deficits. 10.Psych: (AAO) x3. Appropriate mood and affect Course Vital Signs Vital signs: Vital Signs Temperature 36.8 C 07/25/23 13:04 Pulse 89 07/25/23 13:04 Respiratory Rate 18 07/25/23 13:04 Blood Pressure 159/86 H 07/25/23 13:04 Pulse Oximetry 95 07/25/23 13:04 Temperature 36.8 C 07/25/23 13:04 Temperature Source Temporal Artery Scan 07/25/23 13:04 Pulse 89 07/25/23 13:04 Respiratory Rate 18 07/25/23 13:04 Respiratory Effort Normal, Non-Labored 07/25/23 13:07 Blood Pressure 159/86 H 07/25/23 13:04 Blood Pressure Position Sitting 07/25/23 13:04 Pulse Oximetry 95 07/25/23 13:04 Oxygen Delivery Method Nasal Cannula 07/25/23 13:04 Oxygen Flow Rate 2 07/25/23 13:04 Pain Level 7 07/25/23 13:04 Comment when touched can be 02/1907/25/23 13:04 Lab/Test Results Lab/Test Results: Laboratory Tests Range/Units 07/25/23 13:43 WBC (4.4-10.8) 10^3/uL 7.03 RBC (3.93-5.22) 10^6/uL 4.22 Hgb (11.2-15.7) g/dL 11.8 Hct (36.0-46.0) % 37.5 MCV (80-95) fL 89 MCH (27.0-33.0) pg 28.0 MCHC (32.0-36.0) % 31.5 L RDW (11.7-14.6) % 14.9 H Plt Count (130-400) 10^3/uL 146 MPV (8.0-11.0) fL 9.5 Immature Gran % 0.9 Neutrophils % 73.5 Lymphocytes % 18.9 Monocytes % 5.5 Eosinophils % 0.6 Basophils % 0.6 Nucleated RBC % (0.0-0.3) % 0.0 Absolute Neutrophils (1.2-6.7) 10^3/uL 5.17 Absolute Lymphocytes (1.2-3.4) 10^3/uL 1.33 Absolute Monocytes (0.1-0.8) 10^3/uL 0.39 Absolute Eosinophils (0.0-0.7) 10^3/uL 0.04 Absolute Basophils (0.0-0.2) 10^3/uL 0.04 ESR (0-30) mm/hr 50 H Sodium (136-145) mmol/L 144 Potassium (3.5-5.1) mmol/L 3.7 Chloride (98-107) mmol/L 102 Carbon Dioxide (21.0-32.0) mmol/L 35.0 H Anion Gap (3-11) mmol/L 7.0 BUN (7-18) mg/dL 11 Creatinine (0.55-1.02) mg/dL 0.7 Est GFR (CKD-EPI 2020) (mL/min/1.73m2) 93.56 Glucose (74-106) mg/dL 89 Calcium (8.5-10.1) mg/dL 9.0 Total Bilirubin (0.2-1.0) mg/dL 0.5 AST (15-37) U/L 18 ALT (14-59) U/L 21 Alkaline Phosphatase (46-116) U/L 114 C-Reactive Protein (<or=0.5) mg/dL 6.07 H NT-Pro-B Natriuret Pep (<300) pg/mL 386 H Total Protein (6.4-8.2) g/dL 8.0 Albumin (3.4-5.0) g/dL 3.4 Procalcitonin ng/mL < 0.1 Medical Decision Making 68-year-old female past medical history of COPD, obesity, peripheral edema, presents today for evaluation of edema of the lower extremities. Patient states that she normally takes Lasix, but has not for the last week because I do not like to get up and go pee a lot throughout the day. In addition to this she has noticed that she has had weeping from her legs, as well as redness over the last 2 to 3 days. She does eat salty foods and she admits to this. She denies any significant shortness of breath. She denies any fever or chills. No other complaints at this time. She recently lost her primary care provider, and has not been able to get a new one Set up yet. No other complaints at this time. Physical exam demonstrates notable pitting edema of the lower extremities, and redness in the anterior component which does not appear chronic venous stasis color changes but rather an acute component. Notable weeping in the posterior aspect of her legs. No shortness of breath to speak of otherwise. And concerned that her notable peripheral edema is secondary to her noncompliance with her daily 20 mg Lasix. However there also appears to be evidence of mild cellulitis for her legs. We will diurese with 40 IV Lasix, check for evidence of CHF in her lungs, monitor closely and reassess. 6pm After 40 of IV Lasix was administered, patient had notable make duration. She is already starting to feel better. Chest x-ray negative for acute process versus questionable subtle right lung infiltrate. Repeat assessment shows no crackles in that area. Patient otherwise demonstrates no other pulmonary complaints. Laboratory workup shows no white count, she does have mildly elevated ESR and CRP, however procalcitonin is less than 0.1. proBNP is 386, suspect just peripheral edema rather than a component of hosea CHF from systemic etiology. With the patient's notable improvement and appropriate diuresis, I do feel that she can be discharged as she shows no hypoxemia or other concerning vital sign abnormality. We will start the patient on Keflex for treatment of cellulitis of the lower extremities. She did get a 2 g of ceftriaxone here in the ED. We did contact case management, and they will help set up home health, as well as establish a PCP for the patient. Patient states she does have plenty of 20 mg furosemide and will continue to take this. Patient otherwise stable for discharge. Discussed red flags which to return. I have extensively reviewed the treatment plan and discharge instructions with the patient. I have addressed all patient concerns at this time. The patient was made aware of what symptoms to monitor for that would warrant a return to the emergency department. Discussed the plan with the patient, they demonstrate verbal understanding and agreement with our assessment and plan at this time. The documentation in this chart was dictated using [employer] dictation software. Please excuse any dictation errors. FINDINGS: Single AP portable view. Heart size is upper normal. The mediastinum is not widened. Left lung appears clear. However, there appears to be some mild possible infiltrate in the lower right lung. This difficult to visualize accurately because of prominent overlying breast tissue. Nevertheless, I suspect that there is some infiltrate here in the lower right lung, particularly given the appearance of the right middle lobe on the chest CT scan of 03/15/2023. No pleural effusions no pulmonary edema. IMPRESSION: Possible subtle right lung infiltrate as described above. If clinically indicated CT scan can be performed to prior to the abnormal findings on the CT scan of 03/15/2023. Quality:SDOH Health Related Social Needs: No Data to Display PFSH All Active Problems Edema, peripheral (Acute) Bilateral cellulitis of lower leg (Acute) History of hyperglycemia (Acute) Bilateral lower extremity edema (Acute) Onychomycosis (Acute) COPD (chronic obstructive pulmonary disease) (Chronic) Pulmonary hypertension (Chronic) SOB (shortness of breath) (Acute) Pneumonia (Acute) Acute dyspnea (Acute) Pulmonary nodule (Acute) Social History Smoking/Tobacco Use Status: Current every day Tobacco Type: cigarettes Smoking risk assessment performed?: Yes Alcohol Intake: current Alcohol Intake frequency: holidays/special occasions only Drug use: Never Substance use type: does not use Housing: apartment Do you feel safe at home: Yes Do you feel safe in your relationship?: Yes
[2023-07-25] MEDS: cefTRIAXone 2 GM/50 ML BAG IVPB (16:03)
[2023-07-25] MEDS: Cephalexin 500 MG CAP, 4 CAPS/BTL PO (17:10)
--- NOTE | 2023-07-27 15:44 | CMPROGNOTE_ITS ---
Date of service: 07/27/23 Time of Service: 15:44 Care Management Progress Note Progress Note Text Progress Note Text: CM received a referral for new HH services for this patient. CM faxed HH face to face, demos and ED note to [facility], as requested. SDOH(Care Management) Screening Will the Patient Participate in the Screening?: Yes Do you worry about having a steady place to live?: no In the past 12 months, have you had to go without electric, gas, oil or water in your home?: no Have you or anyone in your house had to go without enough food to eat?: no Has lack of transportation kept you from medical appointments or from doing things needed for daily living?: no Has anyone in your support network made you feel unsafe for any reason?: no
== END 2023-07-25 17:03 | disposition home or self-care (01) ==
PROVIDERS: Emergency Provider Student in an Organized Health Care Education/Training Program; PCP Nurse Practitioner Family
DX: L03.115 Cellulitis of right lower limb (principal); L03.116 Cellulitis of left lower limb
CPT/HCPCS: 80053; 84145; 85652; 96365; 99284; 71045; 83880; 85025; 86140; J0696; J1940

== ENCOUNTER 2023-08-02 15:21 | Outpatient (REF) | payer MEDICARE, MEDICAID, SELFPAY ==
[2023-08-02 18:42] LABS: Anion Gap 8.8 mmol/L (3-11); BUN 14 mg/dL (7-18); CO2 32.2 mmol/L (21.0-32.0); CREATININE 0.7 mg/dL (0.55-1.02); Calcium 9.4 mg/dL (8.5-10.1); Calculated LDL 91 mg/dL (<100); Chloride 102 mmol/L (98-107); Cholesterol 183 mg/dL (<200); Estimated GFR 93.56 (mL/min/1.73m2); Glucose 91 mg/dL (74-106); HDL Cholesterol 69 mg/dL (40-60); Magnesium 2.2 mg/dL (1.8-2.4); Potassium 4.3 mmol/L (3.5-5.1); Sodium 143 mmol/L (136-145); Triglyceride 116 mg/dL (<150)
== END 2023-08-02 15:22 | disposition home or self-care (01) ==
LOC: NCHCN 15:21
PROVIDERS: PCP Student in an Organized Health Care Education/Training Program; Visit Provider Student in an Organized Health Care Education/Training Program
DX: I10 Essential (primary) hypertension (principal); Z13.220 Encounter for screening for lipoid disorders
CPT/HCPCS: 80048; 80061; 83735

== ENCOUNTER → 2023-09-17 04:41 | Outpatient (CLI) | payer MEDICARE, MEDICAID, SELFPAY ==
--- NOTE | 2023-09-17 07:15 | DI.CT_ITS ---
Exam(s) CT CHEST WO EXAM: CT CHEST WO CLINICAL HISTORY: F/U PULMONARY NODULE, COPD,J44.9,R91.1. TECHNIQUE: Imaging protocol: Axial computed tomography images were obtained and coronal and sagittal reformatted images were created and reviewed. COMPARISON: CT CT CHEST WO from 08/21/[address] CHEST WO from 02/26/[address] CHEST WO from 08/20/[address] CHEST WO from 03/15/2023 FINDINGS: Tracheobronchial tree: Patent where visualized. There is bronchiectasis seen in the right middle lobe . Pulmonary parenchyma: No consolidation or dominant measurable mass. There is a stable 3 mm nodule in the lateral aspect of the left upper lobe (series 3, image 210). There is an area of atelectasis or scarring which persists in the left lingula and is unchanged. There is a stable 5 mm nodule in the r ight middle lobe (series 3, image 342). There has been some improvement in the atelectatic changes s een in the right middle lobe. There is an area of nodularity in the right middle lobe anterior media lly. This may be recent atelectasis or pneumonia. A mass cannot be excluded. It now measures 2.2 x 1.5 cm compared to 1.7 x 1.1 cm). (Series 3, image 345). There is a a nodule again seen in the rig ht lower lobe (series 3, image 354) which now measures 1.2 cm compared to 1.0 cm on the prior examina tion. No new nodules are seen. Mediastinum and Naima: No dominant adenopathy or fluid collection. The esophagus is unremarkable. Thyroid gland: Unremarkable. Pleura: No effusion or pneumothorax. Heart: The heart is not dilated. Coronary artery calcification and/or stents are present. No pericar dial effusion. Aorta: Thoracic aorta non-dilated. Atherosclerotic calcification is present. Upper abdomen: Gallstones are present. No biliary ductal dilatation. Lymph nodes: Within normal limits. Soft tissues: Unremarkable. Bones:Within normal limits for the patient's age. IMPRESSION: 1. Multiple pulmonary nodules are again seen. There has been slight interval increase in size in the nodule in the lower right lower lobe. There is a persistent masslike area in the medial aspect of t he right middle lobe. While this may represent atelectasis or pneumonia, neoplasm cannot be excluded . A PET CT scan is recommended in this patient for further evaluation. 2. Cholelithiasis. 3. Coronary artery calcification and atherosclerotic calcification of the thoracic aorta. Unexpected findings RADIATION DOSE DELIVERED: 668.11mGy.cm Total DLP 668.11mGy.cm Total DLP DATA REPOSITORY: All CT scans at this facility are submitted to the National Radiology Data Registry (NRDR) Dose Index Registry (DIR) with the [employer] (ACR). RADIATION OPTIMIZATION: All CT scans at this facility use at least one of these dose optimization te chniques: automated exposure control; mA and/or kV adjustment per patient size (includes targeted exa ms where dose is matched to clinical indication); or iterative reconstruction.
== END ==
PROVIDERS: PCP Student in an Organized Health Care Education/Training Program; Visit Provider Physician Assistant Surgical
DX: J44.9 Chronic obstructive pulmonary disease, unspecified (principal)
CPT/HCPCS: 71250

== ENCOUNTER → 2023-09-24 10:21 | Outpatient (BNVA) | payer MEDICARE, MEDICAID, SELFPAY | PROVIDERS: PCP Student in an Organized Health Care Education/Training Program; Referring Provider Nurse Practitioner Family; Visit Provider Student in an Organized Health Care Education/Training Program | DX: J43.2 Centrilobular emphysema (principal); I27.20 Pulmonary hypertension, unspecified; J96.21 Acute and chronic respiratory failure with hypoxia; J96.22 Acute and chronic respiratory failure with hypercapnia; R91.1 Solitary pulmonary nodule; R60.0 Localized edema | CPT/HCPCS: 99214 ==

== ENCOUNTER → 2023-10-28 10:59 | Outpatient (BNVA) | payer MEDICARE, MEDICAID, SELFPAY | PROVIDERS: PCP Student in an Organized Health Care Education/Training Program; Referring Provider Student in an Organized Health Care Education/Training Program; Visit Provider Podiatrist | DX: I70.203 Unspecified atherosclerosis of native arteries of extremities, bilateral legs (principal); I89.0 Lymphedema, not elsewhere classified; I50.812 Chronic right heart failure; B35.1 Tinea unguium; L60.3 Nail dystrophy; R25.2 Cramp and spasm | CPT/HCPCS: 11721; 99214 ==

== ENCOUNTER → 2024-01-09 14:22 | Outpatient (BNVA) | payer MEDICARE, MEDICAID, SELFPAY | PROVIDERS: PCP Student in an Organized Health Care Education/Training Program; Referring Provider Student in an Organized Health Care Education/Training Program; Visit Provider Physician Assistant Surgical | DX: J43.2 Centrilobular emphysema (principal); I27.20 Pulmonary hypertension, unspecified; J96.21 Acute and chronic respiratory failure with hypoxia; J96.22 Acute and chronic respiratory failure with hypercapnia; R91.1 Solitary pulmonary nodule; R60.0 Localized edema; Z86.39 Personal history of other endocrine, nutritional and metabolic disease | CPT/HCPCS: 99214 ==

== ENCOUNTER → 2024-01-15 09:33 | Outpatient (BNVA) | payer MEDICARE, MEDICAID, SELFPAY | PROVIDERS: PCP Student in an Organized Health Care Education/Training Program; Referring Provider Student in an Organized Health Care Education/Training Program; Visit Provider Physical Therapy Assistant | DX: I70.203 Unspecified atherosclerosis of native arteries of extremities, bilateral legs (principal) | CPT/HCPCS: 93922 ==

== ENCOUNTER → 2024-03-02 10:55 | Outpatient (BNVA) | payer MEDICARE, MEDICAID, SELFPAY | PROVIDERS: PCP Student in an Organized Health Care Education/Training Program; Referring Provider Student in an Organized Health Care Education/Training Program; Visit Provider Podiatrist | DX: L60.3 Nail dystrophy (principal); B35.1 Tinea unguium; I70.203 Unspecified atherosclerosis of native arteries of extremities, bilateral legs; I50.812 Chronic right heart failure; R60.0 Localized edema; I89.0 Lymphedema, not elsewhere classified; I73.89 Other specified peripheral vascular diseases | CPT/HCPCS: 11721 ==

== ENCOUNTER → 2024-04-15 12:55 | Outpatient (BNVA) | payer MEDICARE, MEDICAID, SELFPAY | PROVIDERS: PCP Student in an Organized Health Care Education/Training Program; Referring Provider Student in an Organized Health Care Education/Training Program; Visit Provider Physician Assistant Surgical | DX: J43.2 Centrilobular emphysema (principal); J96.21 Acute and chronic respiratory failure with hypoxia; J96.22 Acute and chronic respiratory failure with hypercapnia; R91.1 Solitary pulmonary nodule; R60.0 Localized edema; I27.20 Pulmonary hypertension, unspecified; Z86.39 Personal history of other endocrine, nutritional and metabolic disease | CPT/HCPCS: 99214 ==

== ENCOUNTER 2024-04-30 01:16 | Outpatient (CLI) | payer MEDICARE, MEDICAID, SELFPAY ==
--- NOTE | 2024-04-30 13:34 | DI.CT_ITS ---
Exam(s) CT CHEST WO EXAM: CT CHEST WO CLINICAL HISTORY: F/U NODULES, COPD,EMPHYSEMA,J43.2. TECHNIQUE: Multi planar reconstructions were performed. CONTRAST MATERIAL: None COMPARISON: CT CT CHEST WO from 09/17/2023 FINDINGS: CHEST: LUNGS: Previously present nodule in the medial aspect of the right upper lobe appears unchanged. The nodule in the right lower lobe presently measures 1.1 by 0.7 cm, unchanged from previous. The size of the infiltrate in the right middle lobe appears to have slightly increased in size. This is adjac ent to the right heart border. There is also some new nodular infiltrate in the posterior basal segm ent of the right lower lobe, not previously evident on 09/17/2023 although immediately subjacent to t his is a subpleural noncalcified 3 millimeter nodule which is unchanged. There is no pleural effusio n. On the opposite-left side the infiltrate in the inferior lingular segment appears unchanged. Small p leural based 4 millimeter nodule in the anterior basal segment of the left lower lobe is unchanged. There are no new left lung findings and there are no pleural effusions on either side. No new findin gs in the trachea and mainstem bronchi. MEDIASTINUM: There is no obvious hilar nor mediastinal adenopathy. Single small calcification in the left thyroid lobe again noted.No obvious axillary adenopathy CARDIAC: Heart size is normal. There is no pericardial effusion.Caliber of the thoracic aorta is wit hin normal limits. VISUALIZED UPPER ABDOMEN: OSSEOUS: No significant osseous lesions.No fractures.. IMPRESSION: 1. Compared to CT scan of 09/17/2023 there are some increasing findings in the right lung. The size of the infiltrate adjacent to the right heart border in the right middle lobe appears to have slightl y increased in size and there is also a new small nodular density in the posterior basal segment of t he right lower lobe. These require close follow-up. Other findings in the right lung brain stable a s do few findings in the left lung. No new left lung findings. There are no pleural effusions. 2. No hilar nor mediastinal adenopathy. 3. No new significant osseous findings. RADIATION DOSE DELIVERED: 291.68mGy.cm Total DLP DATA REPOSITORY: All CT scans at this facility are submitted to the National Radiology Data Registry (NRDR) Dose Index Registry (DIR) with the [employer] (ACR). RADIATION OPTIMIZATION: All CT scans at this facility use at least one of these dose optimization te chniques: automated exposure control; mA and/or kV adjustment per patient size (includes targeted exa ms where dose is matched to clinical indication); or iterative reconstruction.
== END 2024-04-30 01:36 ==
LOC: DI 01:17
PROVIDERS: PCP Student in an Organized Health Care Education/Training Program; Visit Provider Physician Assistant Surgical
DX: J43.2 Centrilobular emphysema (principal)
CPT/HCPCS: 71250

== ENCOUNTER 2024-07-23 01:14 | Outpatient (CLI) | payer MEDICARE, MEDICAID, SELFPAY ==
--- NOTE | 2024-07-23 | DI.DEXA_ITS ---
Exam(s) XR DEXA BONE DENSITY W/WO JACQUES EXAM: XR DEXA BONE DENSITY W/WO JACQUES CLINICAL HISTORY: MENOPAUSE PRESENT, Z78.0, ASYMPTOMATIC MENOPAUSAL STATE, CURRENT SMOKER, TECHNIQUE: Routine DEXA evaluation of the lumbar spine, hip, or forearm. COMPARISON: No exams were available for comparison FINDINGS: Performed on a Hologic unit. Lateral image: Apparently not able to be performed on this patient Lumbar Spine total T-score: 1.9 Hip total T-score:0.2 Independent reading at the level of the femoral neck yields T-score of -0.5 Forearm total T-score: 0.8 IMPRESSION: Bone mineral density measures in the normal range. Fracture risk is low. Note: Any spine fracture indicates 5x risk for subsequent spine fracture and 2x risk for subsequent h ip fracture. World Health Organization criteria for BMD interpretation classify patients: Normal...... T- Score at or above -1.0 Osteopenic... T- Score between -1.0 and -2.5 Osteoporosis... T-Score at or below -2.5
== END 2024-07-23 01:34 ==
LOC: DI 01:14
PROVIDERS: PCP Student in an Organized Health Care Education/Training Program; Visit Provider Student in an Organized Health Care Education/Training Program
DX: Z78.0 Asymptomatic menopausal state (principal); Z13.820 Encounter for screening for osteoporosis
CPT/HCPCS: 77080

== ENCOUNTER → 2024-10-19 11:16 | Outpatient (BNVA) | payer MEDICARE, MEDICAID, SELFPAY | PROVIDERS: PCP Student in an Organized Health Care Education/Training Program; Referring Provider Student in an Organized Health Care Education/Training Program; Visit Provider Physician Assistant Surgical | DX: I27.20 Pulmonary hypertension, unspecified (principal); J96.21 Acute and chronic respiratory failure with hypoxia; J96.22 Acute and chronic respiratory failure with hypercapnia; R91.1 Solitary pulmonary nodule; J43.2 Centrilobular emphysema; R60.0 Localized edema; Z86.39 Personal history of other endocrine, nutritional and metabolic disease | CPT/HCPCS: 99214 ==

== ENCOUNTER 2024-10-30 00:47 | Outpatient (CLI) | payer MEDICARE, MEDICAID, SELFPAY ==
--- NOTE | 2024-10-30 07:30 | DI.CT_ITS ---
Exam(s) CT CHEST WO EXAM: CT CHEST WO CLINICAL HISTORY: f/u nodules,copd,r91.1,j43.2. TECHNIQUE: Imaging protocol: Axial computed tomography images were obtained and coronal and sagittal reformatted images were created and reviewed. Lung Computer Aided Detection (CAD) was utilized. COMPARISON: CT CT CHEST WO from 03/15/[address] CHEST WO from 09/17/[address] CHEST WO from 04/30/2024 FINDINGS: Tracheobronchial tree: Patent where visualized. No bronchiectasis is present. Pulmonary parenchyma: There are stable nodules in the left lower lobe. There is a stable nodule in the lateral aspect of the left upper lobe. There is again seen an area of consolidation in the left lingula inferiorly. The nodular infiltrate in the medial aspect of the right lung base has nearly completely resolved. There is a 3 mm nodule in the right lower lobe (series 2, image 99). The 9 mm nodule in the right lower lobe is stable (series 2, image 88). The area of consolidation in the medial aspect of the right middle lobe has shown further increase in size. No new infiltrates are seen. Mediastinum and Naima: No dominant adenopathy or fluid collection. The esophagus is unremarkable. Thyroid gland: Unremarkable. Pleura: No effusion or pneumothorax. Heart: The heart is not dilated. Coronary artery calcifications are present. No pericardial effusion. Aorta: Thoracic aorta non-dilated. Atherosclerotic calcification is present. Upper abdomen: Cholelithiasis. Lymph nodes: Within normal limits. Soft tissues: Unremarkable. Bones:Within normal limits for the patient's age. IMPRESSION: 1. No new pulmonary nodules. Stable pulmonary nodules in the lungs. 2. Slight progression of the area of consolidation in the medial aspect of the right middle lobe. 3. Resolution of the nodular infiltrate in the posterior medial right lower lobe. 4. Cholelithiasis. RADIATION DOSE DELIVERED: 346.55mGy.cm Total DLP 346.55mGy.cm Total DLP DATA REPOSITORY: All CT scans at this facility are submitted to the National Radiology Data Registry (NRDR) Dose Index Registry (DIR) with the [employer] (ACR). RADIATION OPTIMIZATION: All CT scans at this facility use at least one of these dose optimization techniques: automated exposure control; mA and/or kV adjustment per patient size (includes targeted exams where dose is matched to clinical indication); or iterative reconstruction.
== END 2024-10-30 01:07 ==
LOC: DI 00:47
PROVIDERS: PCP Student in an Organized Health Care Education/Training Program; Visit Provider Physician Assistant Surgical
DX: J43.2 Centrilobular emphysema (principal); R91.1 Solitary pulmonary nodule
CPT/HCPCS: 71250

== ENCOUNTER → 2025-01-20 12:34 | Outpatient (BNVA) | payer MEDICARE, MEDICAID, SELFPAY | PROVIDERS: PCP Student in an Organized Health Care Education/Training Program; Referring Provider Student in an Organized Health Care Education/Training Program; Visit Provider Physician Assistant Surgical | DX: I27.20 Pulmonary hypertension, unspecified (principal); J96.21 Acute and chronic respiratory failure with hypoxia; J96.22 Acute and chronic respiratory failure with hypercapnia; R91.1 Solitary pulmonary nodule; J43.2 Centrilobular emphysema; R60.0 Localized edema; F17.210 Nicotine dependence, cigarettes, uncomplicated | CPT/HCPCS: 99214 ==

== ENCOUNTER 2025-02-04 02:26 | Outpatient (CLI) | payer MEDICARE, MEDICAID, SELFPAY ==
--- NOTE | 2025-02-04 07:00 | DI.CT_ITS ---
Exam(s) CT CHEST W EXAM: CT CHEST W CLINICAL HISTORY: increasing RML nodule R91.1 PULM NODULE TECHNIQUE: Imaging Protocol: Axial computed tomography images with coronal and sagittal reformatted images were created and reviewed. Computer aided detection (CAD) was utilized. CONTRAST MATERIAL: Intravenous: Omnipaque 350 Contrast volume:structured data ml. COMPARISON: CR XR PORTABLE CHEST AP from 07/25/[address] CHEST WO from 09/17/[address] CHEST WO from 04/30/[address] CHEST WO from 10/30/2024 FINDINGS: Pulmonary parenchyma: Stable area of consolidation in the inferomedial lingula. No significant change in the area of infiltration in/atelectasis in the right middle lobe. Stable 9 millimeter nodule in the right lower lobe. Stable nodule at the medial right upper lobe. Other tiny nodules are stable. Tracheobronchial tree: No bronchiectasis or mucous plugging. Mediastinum and Naima: No dominant adenopathy or fluid collection. Pleura: No effusion. No pneumothorax. Heart: The heart is not dilated. Severe coronary artery calcifications are seen. Aorta: Thoracic aorta non-dilated. Mild atherosclerotic changes. Pulmonary arteries: No gross evidence of emboli. Upper abdomen: Cholelithiasis again noted. Bones: Stable midthoracic mild compression fracture.Degenerative changes in the spine. Soft tissues: Unremarkable. IMPRESSION: Stable area of atelectasis/consolidation in the anterior right middle lobe. Findings could represent rounded atelectasis. No discrete mass is visible. Cysts stable area of atelectasis/consolidation in the inferior medial lingula. Stable pulmonary nodules. RADIATION DOSE DELIVERED: 307.16mGy.cm Total DLP DATA REPOSITORY: All CT scans at this facility are submitted to the National Radiology Data Registry (NRDR) Dose Index Registry (DIR) with the [employer] ([employer]). RADIATION OPTIMIZATION: All CT scans at this facility use at least one of these dose optimization techniques: automated exposure control; mA and/or kV adjustment per patient size (includes targeted exams where dose is matched to clinical indication); or iterative reconstruction.
[2025-02-04 12:31] LABS: Estimated GFR 79.22 (mL/min/1.73m2)
[2025-02-04] MEDS: Normal Saline - Diluent 50 ML VIAL IJ (13:09)
[2025-02-04] MEDS: Omnipaque 350 MG/ML 100 ML BTL IJ (13:09)
[2025-02-04] MEDS: Normal Saline Flush 10 ML SYR IVP (13:10)
== END 2025-02-04 02:46 ==
LOC: DI 02:27
PROVIDERS: PCP Student in an Organized Health Care Education/Training Program; Visit Provider Physician Assistant Surgical
DX: R91.1 Solitary pulmonary nodule (principal)
CPT/HCPCS: 71260; 82565; J3490

== ENCOUNTER → 2025-02-17 11:26 | Outpatient (BNVA) | payer MEDICARE, MEDICAID, SELFPAY | PROVIDERS: PCP Student in an Organized Health Care Education/Training Program; Referring Provider Student in an Organized Health Care Education/Training Program; Visit Provider Internal Medicine Pulmonary Disease | DX: J43.2 Centrilobular emphysema (principal); R91.8 Other nonspecific abnormal finding of lung field; J96.21 Acute and chronic respiratory failure with hypoxia; J96.22 Acute and chronic respiratory failure with hypercapnia; F17.210 Nicotine dependence, cigarettes, uncomplicated | CPT/HCPCS: 99215 ==

== ENCOUNTER 2025-02-24 00:30 | Outpatient (CLI) | payer MEDICARE, MEDICAID, SELFPAY ==
[2025-02-24] MEDS: Levalbuterol HFA 15 GM INH 4 PUFF IH (11:41)
[2025-02-24] MEDS: Inhaler, Assist Device 1 EACH MC (11:41)
--- NOTE | 2025-02-25 10:18 | W.PFT ---
Date of service: 02/24/25 Time of Service: 09:53 Pulmonary Function Test Result Indications: COPD Impression 1. Good patient effort was noted. ATS standards for reproducibility were met. 2. Spirometry showed severe obstructive lung disease with an FEV1 of 34% (0.67 L) 3. Following the administration of a bronchodilator there was a significant response 4. TLC and RV were elevated, consistent with air trapping 5. DLCO was 70%, consistent with a moderate defect in alveolar gas exchange
== END 2025-02-24 00:31 | disposition home or self-care (01) ==
LOC: RT 00:30
PROVIDERS: PCP Student in an Organized Health Care Education/Training Program; Visit Provider Internal Medicine Pulmonary Disease
DX: J44.9 Chronic obstructive pulmonary disease, unspecified (principal); J43.2 Centrilobular emphysema
CPT/HCPCS: 94060; 94726; 94729

== ENCOUNTER 2025-04-21 12:39 | Outpatient (REF) | payer MEDICARE, MEDICAID, SELFPAY ==
[2025-04-21 17:17] LABS: Abs Immature Grans 0.03 10^3/uL (0.0-0.06); HCT 38.3 % (36.0-46.0); HGB 11.7 g/dL (11.2-15.7); Immature Grans % 0.4 %; MCH 27.0 pg (27.0-33.0); MCHC 30.5 % (32.0-36.0); MCV 88 fL (80-95); MPV 10.8 fL (8.0-11.0); Platelet Count 184 10^3/uL (130-400); RBC 4.34 10^6/uL (3.93-5.22); RDW 14.3 % (11.7-14.6); RDW-SD 46.2 fL; WBC 7.75 10^3/uL (4.4-10.8)
[2025-04-21 17:46] LABS: Anion Gap 6.2 mmol/L (3-11); BUN 29 mg/dL (9-23); CO2 32.8 mmol/L (20.0-31.0); Calcium 9.3 mg/dL (8.3-10.6); Chloride 102 mmol/L (98-107); Glucose 89 mg/dL (74-106); Potassium 5.4 mmol/L (3.5-5.1); Sodium 141 mmol/L (136-145)
[2025-04-21 17:47] LABS: Magnesium 2.2 mg/dL (1.6-2.6)
== END 2025-04-21 12:40 | disposition home or self-care (01) ==
LOC: NCHCN 12:39
PROVIDERS: PCP Student in an Organized Health Care Education/Training Program; Visit Provider Student in an Organized Health Care Education/Training Program
DX: I10 Essential (primary) hypertension (principal)
CPT/HCPCS: 80048; 83735; 85025

== ENCOUNTER → 2025-05-03 00:55 | Outpatient (CLI) | payer MEDICARE, MEDICAID, SELFPAY ==
--- NOTE | 2025-05-03 07:15 | DI.CT_ITS ---
Exam(s) CT CHEST WO EXAM: CT CHEST WO CLINICAL HISTORY: Re-evaluate pulmonary infiltrates / nodules,R91.8. TECHNIQUE: Imaging protocol: Axial computed tomography images were obtained and coronal and sagittal reformatted images were created and reviewed. Lung Computer Aided Detection (CAD) was utilized. COMPARISON: CT CT CHEST W from 02/04/2025 FINDINGS: Tracheobronchial tree: Patent where visualized. No bronchiectasis is present. Pulmonary parenchyma: Centrilobular emphysematous changes are present. There has been interval decrease in size of the infiltrate in the left lingula. There is a stable right lower lobe 9 mm nodule. There has been no change in the right middle lobe consolidation. The nodule in the medial aspect of the right upper lobe is stable. There are no new pulmonary nodules or infiltrates present. Mediastinum and Naima: No dominant adenopathy or fluid collection. The esophagus is unremarkable. Thyroid gland: Unremarkable. Pleura: No effusion or pneumothorax. Heart: The heart is not dilated. Coronary artery calcifications are present. No pericardial effusion. Aorta: Thoracic aorta non-dilated. Atherosclerotic calcification is present. Upper abdomen: Cholelithiasis. Lymph nodes: Within normal limits. Soft tissues: Unremarkable. Bones:Within normal limits for the patient's age. IMPRESSION: 1. Stable atelectasis, infiltrate in the right middle lobe. Improved infiltrate in the left lingula. There are no new infiltrates present. 2. Stable pulmonary nodules. No new pulmonary nodules are present. RADIATION DOSE DELIVERED: 423.3mGy.cm Total DLP 423.3mGy.cm Total DLP DATA REPOSITORY: All CT scans at this facility are submitted to the National Radiology Data Registry (NRDR) Dose Index Registry (DIR) with the [employer] ([employer]). RADIATION OPTIMIZATION: All CT scans at this facility use at least one of these dose optimization techniques: automated exposure control; mA and/or kV adjustment per patient size (includes targeted exams where dose is matched to clinical indication); or iterative reconstruction.
== END ==
PROVIDERS: PCP Student in an Organized Health Care Education/Training Program; Visit Provider Internal Medicine Pulmonary Disease
DX: R91.8 Other nonspecific abnormal finding of lung field (principal); J98.11 Atelectasis
CPT/HCPCS: 71250

== ENCOUNTER 2025-05-03 01:43 | Outpatient (CLI) | payer MEDICARE, MEDICAID, SELFPAY ==
[2025-05-03 14:48] LABS: Potassium 4.5 mmol/L (3.5-5.1)
== END 2025-05-03 01:44 | disposition home or self-care (01) ==
LOC: LBO 01:43
PROVIDERS: PCP Student in an Organized Health Care Education/Training Program; Visit Provider Student in an Organized Health Care Education/Training Program
DX: E87.5 Hyperkalemia (principal)
CPT/HCPCS: 36415; 71250; 84132